=== PATIENT | male | born 1960 | race Caucasian/White ===

== ENCOUNTER → 2021-08-31 12:28 | Outpatient (CLI) | payer OTHER, SELFPAY ==
--- NOTE | ~2021-08-31 | MR_ITS ---
EXAMINATION: MR shoulder LT wo con DATE: 08/31/2021 14:05 INDICATION: Left shoulder pain TECHNIQUE: Magnetic resonance imaging (MRI) of the left shoulder was performed without intravenous co ntrast. Sequences included axial PD-weighted FS FSE, coronal oblique PD-weighted FS FSE, coronal obli que T2-weighted FS FSE, sagittal PD-weighted FS FSE, and sagittal T1-weighted SE. COMPARISON: Left shoulder radiographs dated 05/14/2012 FINDINGS: Coracoacromial arch: The acromion undersurface is curved in morphology (type II). The coracoacromial ligament is normal. M ild to moderate acromial clavicular osteoarthritis with inferiorly directed osteophyte at the lateral margin of the clavicle which abuts the cephalad surface of the underlying supraspinatus with effacem ent of the intervening fat plane. Mild subarticular cystic change at both sides of the joint space. Rotator cuff: Mild to moderate supraspinatus, mild subscapularis and mild anterior infraspinatus tendinopathy witho ut discrete tears. There is mild cystic change underlying the superior and middle facet footplates. T he teres minor tendon is normal. Normal rotator cuff muscle bulk and signal. Biceps tendon, glenoid labrum and glenohumeral cartilage: Mild tendinopathy without discrete tear of the long head biceps tendon at the junction of the interna l extra-articular portions of the tendon. There is a tear at the 10:30-11:30 position of the posterio r superior glenoid labrum. Glenohumeral cartilage is normal. Fluid: Physiologic amount of fluid in the glenohumeral joint and biceps tendon sheath. No loose osteochondra l bodies. Small amount of fluid in the subacromial/subdeltoid bursa consistent with mild bursitis. Bones: Bone alignment is normal. Normal marrow signal with no fracture or pathologic marrow replacing proces s. IMPRESSION: 1. Small SLAP tear at the posterior superior glenoid labrum. 2. Mild to moderate supraspinatus and mild subscapularis and anterior infraspinatus tendinopathy with out discrete tear. 3. Mild tendinopathy without discrete tear at the junction the intra and extra articular portions of the long head biceps tendon. 4. Mild to moderate acromioclavicular osteoarthritis. Reviewed, dictated and finalized at location A. IMPRESSION: 1. Small SLAP tear at the posterior superior glenoid labrum. 2. Mild to moderate supraspinatus and mild subscapularis and anterior infraspin atus tendinopathy without discrete tear. 3. Mild tendinopathy without discrete tear at the junction the intra and extra articular portions of the long head biceps tendon. 4. Mild to moderate acromioclavicular osteoarthritis.
== END ==
PROVIDERS: Visit Provider Pediatrics Sports Medicine
DX: M19.012 Primary osteoarthritis, left shoulder (principal); S43.432A Superior glenoid labrum lesion of left shoulder, initial encounter; X58.XXXA Exposure to other specified factors, initial encounter
CPT/HCPCS: 73221

== ENCOUNTER 2025-02-09 00:54 | Day surgery (SDC) | payer OTHER, SELFPAY ==
[2025-02-03 13:41] VITALS: BMI 35.6
--- OUTSIDE RECORDS SUMMARY | 2025-02-09 00:57 | XMS_ITS | Data Portability ---
Author Organization [employer], [email or web address], [facility] Address [address] [address] Care Team Providers Care Cell Technician Name Role Phone TESSIE DAMON Primary Care Provider [phone] Assessment No assessment recorded. Plan of Treatment Reminders Order Date Submit Date Provider Last Modified By Organization Details Last Modified Time Details Appointments None recorded. Lab None recorded. Referral None recorded. Procedures injection/a spiration, large joint or bursa, with ultrasound guidance (PROC) 2019 020 Not available 0 16:53:36 Surgeries None recorded. Imaging None recorded. Medication Orders Kenalog 40 mg/mL suspension for injection 2019 020 [facility], [address], [address], 1 14:02:49 Patient TargetsNo targets recorded. Patient InstructionsNo instructions recorded. Reason for Referral None Reported. Results Created Date Observation Date Name Description Value Unit Range Abnormal Flag Note LastModifiedBy Organization Detail LastModifiedTime 08/31/20 21 08/31/2021 MRI, shoul nicole, w/o contr ast No observ ation record ed. [facility] [address], [place], [address], 09/03/2021 13:54:34 Result Notes None recorded. Problems Name Problem SNOMED Code Status Onset Date Resolution Date Notes Provider Name and Address Organization Details Recorded Time Degenerative joint disease of shoulder region 14061182 Active Gene moreno [place] [employer], [email or web address] 6 15:22:46 Problem Notes None recorded. Procedures Surgical History Date Name Laterality Status Provider Name and Address Organization Details Recorded Time Back Surgery completed Gene Kessler [employer] [facility], [email or web address] 12/14/2019 14:59:15 Imaging Results Imaging Date Name Status LastModified by Organiz ation Details LastModified Time 08/31/2021 MRI, shoulder, w/o contrast [email or web address] [address], [place], [address], 09/03/2021 13:54:34 Procedure Notes None recorded. Medical Equipment None Reported. Allergies No known drug allergies Medications Name Sig Start Date Stop Date Status Note LastModified by Organization Details LastModified Time celecoxib 200 mg capsule 01/19 completed Not Available Not Available Not Available amoxicillin 500 mg capsule TAKE 2 CAPSULES BY MOUTH NOW THEN 1 THREE TIMES DAILY UNTIL GONE 10/28 completed Not Available Not Available Not Available dicloxacill in 500 mg capsule 05/07 completed Not Available Not Available Not Available metformin 500 mg tablet 10/28 completed Not Available Not Available Not Available Depo-Medrol 40 mg/mL suspension for injection 05/07 completed Not Available Not Available Not Available clindamycin HCl 300 mg capsule TAKE 1 CAPSULE BY MOUTH 4 TIMES DAILY UNTIL GONE 10/28 completed Not Available Not Available Not Available azithromyci n 250 mg tablet 01/13 completed Not Available Not Available Not Available ranitidine 300 mg tablet 10/28 completed Not Available Not Available Not Available hydrocodone 5 mg-acetamin ophen 325 mg tablet 01/19 completed Not Available Not Available Not Available meloxicam 15 mg tablet 01/13 completed Not Available Not Available Not Available famotidine 40 mg tablet active Not Available Not Available Not Available prednisone 20 mg tablet TAKE 2 TABLETS BY MOUTH ONCE DAILY FOR 5 DAYS 01/19 completed Not Available Not Available Not Available metronidazo le 500 mg tablet 10/28 completed Not Available Not Available Not Available acetaminoph en 300 mg-codeine 30 mg tablet TAKE 1 TO 2 TABLETS BY MOUTH EVERY 6 HOURS NEEDED FOR PAIN 01/19 completed Not Available Not Available Not Available allopurinol 100 mg tablet TAKE 1 TABLET BY MOUTH TWICE DAILY active Not Available Not Available No t Available ciprofloxac in 500 mg tablet 05/07 completed Not Available Not Available Not Available fenofibrate micronized 200 mg capsule 01/19 completed Not Available Not Available Not Available tramadol 50 mg tablet TAKE 1 TABLET BY MOUTH EVERY 6 HOURS NEEDED FOR PAIN 01/19 completed Not Available Not Available Not Available triamcinolo ne acetonide 0.1 % topical cream APPLY CREAM EXTERNALL Y TWICE DAILY FOR 2-3 WEEKS TO AFFECTED AREA(S) NEEDED (NOT FOR FACE, ARMPITS, OR GROIN AREA) 01/19 completed Not Available Not Available Not Available Kenalog 40 mg/mL suspension for injection Take by injection route 05/07 completed Not Available Not Available Not Available meloxicam 7.5 mg tablet active Not Available Not Available Not Available oseltamivir 75 mg capsule 01/13 completed Not Available Not Available Not Available metformin 1,000 mg tablet TAKE 1 TABLET BY MOUTH TWICE DAILY WITH MEALS active Not Available Not Available No t Available diclofenac sodium 75 mg tablet,stephon yed release Take 1 tablet twice a day by oral route. 01/13 completed Not Available Not Available Not Available hydroxyzine HCl 25 mg tablet TAKE 1 TABLET BY MOUTH THREE TIMES DAILY NEEDED FOR ITCHING 10/28 completed Not Available Not Available Not Available ammonium lactate 12 % topical cream APPLY CREAM TOPICALLY TO AFFECTED AREA TWICE DAILY 10/28 completed Not Available Not Available Not Available mupirocin 2 % topical ointment APPLY OINTMENT TOPICALLY THREE TIMES DAILY FOR 10 DAYS 01/19 completed Not Available Not Available Not Available levofloxaci n 750 mg tablet 05/07 completed Not Available Not Available Not Available zolpidem 10 mg tablet TAKE 1 TABLET BY MOUTH NIGHTLY AT BEDTIME active Not Available Not Available No t Available methylpredn isolone 4 mg tablets in a dose pack TAKE BY MOUTH DIRECTED ON INSIDE OF PACKAGE 01/19 completed Not Available Not Available Not Available fluticasone propionate 50 mcg/actuati on nasal spray,suspe nsion 05/07 completed Not Available Not Available Not Available naproxen 500 mg tablet 05/07 completed Not Available Not Available Not Available amoxicillin 875 mg-potassiu m clavulanate 125 mg tablet 01/19 completed Not Available Not Available Not Available azithromyci n 500 mg tablet 05/07 completed Not Available Not Available Not Available celecoxib 400 mg capsule 01/13 completed Not Available Not Available Not Available ezetimibe 10 mg tablet active Not Available Not Available Not Available cyclobenzap rine 5 mg tablet TAKE 1 TABLET BY MOUTH THREE TIMES DAILY 01/19 completed Not Available Not Available Not Available Cinnamon 500 mg capsule Take by oral route. 05/07 completed Not Available Not Available Not Available Fish Oil 05/07 completed Not Available Not Available Not Available potassium 05/07 completed Not Available Not Available Not Available fenofibric acid (choline) 135 mg capsule,del ayed release 10/28 completed Not Available Not Available Not Available GaviLyte-G 236 gram-22.74 gram-6.74 gram-5.86 gram oral solution 05/07 completed Not Available Not Available Not Available Xiaflex 0.9 mg solution for injection 05/07 completed Not Available Not Available Not Available One-A-Day Men's 50Plus(gink go) 05/07 completed Not Available Not Available Not Available ChlorTabs 01/13 completed Not Available Not Available Not Available Virtussin AC 10 mg-100 mg/5 mL oral liquid 05/07 completed Not Available Not Available Not Available Vitals Date Recorded Body height Body mass index (BMI) Body weight Heart rate Systolic blood pressure Diastolic blood pressure Provider Name and Address Organization Details Last Updated DateTime 0 185.42 cm 36.9 kg/m2 298506. 86 g 87 /min 133 mm[Hg] 81 mm[Hg] [employer] [facility] 0 14:58:12 Date Recorded Body height Body mass index (BMI) Body weight Heart rate Systolic blood pressure Diastolic blood pressure Provider Name and Address Organization Details Last Updated DateTime 1 185.42 cm 36.9 kg/m2 036676. 86 g 85 /min 134 mm[Hg] 89 mm[Hg] Gene [employer] [facility] 1 14:01:11 Date Recorded Body height Body mass index (BMI) Body weight Heart rate Systolic blood pressure Diastolic blood pressure Provider Name and Address Organization Details Last Updated DateTime 1 185.42 cm 36.9 kg/m2 413008. 86 g 85 /min 134 mm[Hg] 89 mm[Hg] Ina Vance [facility] [employer] [facility] [employer] [facility] 1 11:30:46 Date Recorded Body height Body mass index (BMI) Body weight Heart rate Systolic blood pressure Diastolic blood pressure Provider Name and Address Organization Details Last Updated DateTime 2 185.42 cm 36.9 kg/m2 805640. 86 g 101 /min 154 mm[Hg] 97 mm[Hg] Gene Kessler [facility] [employer] [facility] 2 15:57:28 Date Recorded Body height Body mass index (BMI) Body weight Heart rate Systolic blood pressure Diastolic blood pressure Provider Name and Address Organization Details Last Updated DateTime 4 185.42 cm 36.3 kg/m2 282864. 9 g 92 /min 146 mm[Hg] 86 mm[Hg] Gene Kessler [facility] [employer] [facility] [employer] [facility] 4 15:46:41 Social History Question Answer Notes LastModified by Organizat ion Details LastModified Time Tobacco Smoking Status Never Smoker Gene Kessler [facility] [facility] [employer] [facility] 11/29/2015 13:15:15 What Is Your Level Of Alcohol Consumption? Occasional Information not available 01/13/2018 What Is Your Occupation? [employer] Information not available 01/13/2018 Live Alone Or With Others? With Others Information not available 01/13/2018 Marital Status Informatio n not available 01/13/2018 What Was The Date Of Your Most Recent Tobacco Screening? 01/13/2018 Information n ot available 06/03/2019 How Much Tobacco Do You Smoke? No Information not available 01/13/2018 Sex: Unknown Functional Status None recorded. Mental Status None recorded. Family History Relationship Description Onset Age of this Age Resolved Age Notes LastModified by Organization Details LastModified Time Father Arthritis Not available 01/13/2018 09:51:20 Father Diabetes mellitus Not available 2017 09:51:28 Brother Diabetes mellitus Not available 2017 09:51:34 Brother Diabetes mellitus Not available 2019 14:58:38 Medical History Condition Response HIV or AIDS N Coronary Artery Disease N Other Cancer N Gout N Kidney Stones N Hyperthyroidism N Breast Cancer N Head Trauma/Injury N Hernia N Lung Cancer N Depression N Lung Disease N COPD N Hypothyroidism N Blood Clots N Pneumonia N Pacemaker N Parkinson's N Anxiety Disorder N Multiple Sprains N Arthritis Y Alcohol / Substance Abuse N Kidney Cancer N Cancer N Stroke N Melanoma N Tyrone Danlos Syndrome (EDS) N Bowel Dysfunction N Neck Injury N Leg or Foot Ulcers N High Cholesterol N Skin Cancer N Liver Disease N Rheumatoid Arthritis N Fibromyalgia N Headaches N Gastric Issues N Concussion N Kidney Disease N Heart Problems N Scoliosis N Chronic use of Pain Medication N Prostate Cancer N Migraines N Thyroid Problems N Alzheimers N DVT N Autoimmune Disorder N Anemia N Multiple Sclerosis N Tendon Tear N Ulcers N Heart Attack (ND) N Osteopenia N Diabetes Y Bleeding Disorder N Seizures/Epilepsy N Cardiac Stent N Tuberculosis N A-FIB N BPH N Lymphoma N Urinary Tract Infection N Back Problems N Diverticulitis N Dementia N Vision Problems N Asthma N Lupus N Care Home Medication Use N Peripheral Vascular Disease N Sleep Apnea N Sleep Disorder N GERD/Reflux N Hepatitis N Aneurysm N Thyroid Cancer N Heart Disease N Bronchitis N Pulmonary Embolism N Hypertension N Osteoporosis N Past Encounters Encounter ID Performer Location Encounter Start Date Encounter Closed Date Diagnosis/Indication Diagnosis SNOMED-CT Code Diagnosis ICD10 Code Diagnosis Note [id number] [facility] [id number] [place] [address] 11/29/2015 13:05:33 11/29/2015 13:50:07 Degenerative joint disease of shoulder region 11478947 M19.012 [id number] [facility] [address] [place] [address] 12/03/2016 13:45:24 12/03/2016 16:11:24 Shoulder pain 06968870 M25.511 Arthritis of acromioclavicular joint 619101687 M19.011 [id number] [facility] [id number] [place], [place] [address] 04/15/2017 14:30:57 04/15/2017 15:52:03 Knee pain 82063064 M25.562 [id number] [facility] [id number] [place], [place] [address] 01/13/2018 09:31:07 01/13/2018 14:08:24 Shoulder pain 45289086 M25.511 M25.512 Osteoarthr itis of acromioclavicular joint 428001045 M19.011 M19.012 [id number] [facility] [address] [place] [address] 12/14/2019 14:39:36 12/14/2019 16:16:35 Shoulder pain 38685156 M25.511 M25.512 [id number] [facility] [id number] [place] [address] 05/07/2021 13:42:26 05/07/2021 15:51:19 [id number] [facility] [id number] [place] [address] 07/03/2021 11:07:02 07/03/2021 16:11:48 [id number] [facility] [id number] [place] [address] 10/28/2022 15:26:26 10/29/2022 14:12:01 [id number] [facility] [id number] [place], [place] [address] 01/20/2024 15:29:04 01/21/2024 08:46:55 Health Concerns Section Related Observation LastModified by Organization Detai ls LastModified Time None Recorded Concern Status LastModified by Organization Details LastModified Time None Recorded Advance Directives Directive None Recorded Payers Encounter Date Sequence Insurance Name Policy Number Policy Lao Covered Member ID Lao Member ID Guarantor Name 12/14/2019 1 [facility] [employer] [facility] [facility] [place]note 2] (PP[place]) [id number] Juan Carlos Crump [id number] Juan Carlos Crump 05/07/2021 1 [facility] [id number] Juan Carlos Crump [id number] Juan Carlos Crump 07/03/2021 1 [facility] [id number] Juan Carlos Crump [id number] Juan Carlos Crump 10/28/2022 1 [facility] [id number] Juan Carlos Crump [id number] Juan Carlos Crump 01/20/2024 1 [facility] [id number] Juan Carlos Crump [id number] Juan Carlos Crump 01/20/2024 1 [facility] [id number] Juan Carlos Crump [id number] Juan Carlos Crump Notes Date Note Type Note Provider Name and Address Organization Details Recorded Time 12/14/2019 text/html Pain Score Pain scale from 0-10, 10 being the worst 7 Chief Complaint Pain scale from 0-10, 10 being the worst 7 Imported from [facility] on 12/14/2019 Not Available [facility] 12/17/2019 07:30:16
--- OUTSIDE RECORDS SUMMARY | 2025-02-09 00:57 | XMS_ITS | Encounter Summary ---
Author Organization [facility] Address [address] [place] [address] Care Team Providers Care Front End Manager Name Role Phone Pravin Bradshaw MD Primary Care Provider [phone] Encounter Details Date Type Department Care Team (Latest Contact Info) Description 09/15/2018 Abstract [facility] , Jenna Skaggs MD Social History Tobacco Use Types Packs/Day Years Used Date Smoking Tobacco: Never Assessed Sex and Gender Information Value Date Recorded Sex Assigned at Not on file Legal Sex Male 7:04 PM CDT Gender Identity Not on file Sexual Orientation Not on file documented as of this encounter Plan of Treatment Not on file documented as of this encounter Visit Diagnoses Not on filedocumented in this encounter Additional Health Concerns Infection Onset Date Last Indicated Resolved Time COVID-19 Confirmed 08/18/2020 08/18/2020 0 12:33 AM [employer] COVID-19 Rule Out 08/18/2020 08/18/2020 08/19/2020 4:41 PM CDT documented as of this encounter Care Teams Front End Manager Relationship Specialty [place] [address] [place] [address] PCP - General FAMILY PRACTICE 08/20/18 documented as of this encounter
--- OUTSIDE RECORDS SUMMARY | 2025-02-09 00:58 | XMS_ITS | Encounter Summary ---
Author Organization [facility] Address [address] [place] [address] Care Team Providers Care Technical Analyst Name Role Phone Pravin Bradshaw MD Primary Care Provider [phone] Jena Centeno NP Primary Care Provider [phone] Encounter Details Date Type Department Care Team (Late st Contact Info) Description 04/18/2020 Telephone [facility] [address] [place] [address] Jena Bustamante NP [address] [facility] [address] [place], [place] [id number] Social History Tobacco Use Types Packs/Day Years Used Date Smoking Tobacco: Former Cigarettes 2 19.4 1 981 - 04/06/2000 Smokeless Tobacco: Never Alcohol Use Standard Drinks/Week Comments Yes 10 (1 standard drink = 0.6 oz pu re alcohol) Sex and Gender Information Value Date Recorded Sex Assigned at Not on file Legal Sex Male 8:31 PM [employer] DIRECT[employer] Gender Identity Not on file Sexual Orientation Not on file COVID-19 Exposure Response Date Recorded In the last month, have you been in contact with someone who was confirmed or suspected to have Coronavirus / COVID-19? No / Unsure 04/12/2020 10:43 AM CDT documented as of this encounter Nursing Notes * Jena Bustamante NP - 04/18/2020 10:10 AM CDT Message received from MDs office regarding erythema from pain catheter site. Pics attached to e-mail. Skin on neck is erythematous and with slight edema. Called pt, he is currently applying OTC Hydrocortisone cream and Benadryl PO PRN to help with itching. Pt thinks edema and erythema are slowly resolving with current regimen. Instructed pt to continue medication and to call if symptoms worsen. Requested new pics to be sent to work cell in the next couple of days. Pt verbalized understanding. documented in this encounter Plan of Treatment Not on file documented as of this encounter Visit Diagnoses Not on filedocumented in this encounter Care Teams Technical Analyst Relationship Specialty Start [place] [address] [address] [facility] [address] [place] [address] PCP - General 01/29/19 07/29/24 Jena Centeno NP [address] [facility] [address] [place] [address] PCP - General Family Medicine 07/30/24 documented as of this encounter
--- OUTSIDE RECORDS SUMMARY | 2025-02-09 00:58 | XMS_ITS | Referral Summary ---
Author Organization [facility] [place] Address [address] [place] [address] Care Team Providers Care Screen Printing Cloth Spreader Name Role Phone Jena Centeno NP Primary Care Provider [phone] Encounters Date Type Department Care Team Description 02/01/2025 1:30 PM CDT Office Visit [facility] Primary Care at [address] [phone] Jena Centeno NP Annual physical exam (Primary Dx); Type 2 diabetes mellitus without complication, without long-term current use of insulin (HCC); Hypertension associated with diabetes (HCC); Type 2 diabetes mellitus with hyperlipidemia (HCC); Cervical pain (neck); Strain of cervical portion of trapezius muscle; Vitamin B12 deficiency; Colon cancer screening 01/05/2025 Orders Only [facility] Primary Care at [address] [phone] Jena Centeno NP 01/05/2025 Results Follow-Up [facility] Primary Care at [address] [phone] Jena Centeno NP 01/04/2025 8:02 AM BLOCK MACHINE OPERATOR - 01/04/2025 11:59 PM BLOCK MACHINE OPERATOR Hospital Encounter [address] [address] Nausea; Nocturia; Vitamin B12 deficiency; Gout, unspecified cause, unspecified chronicity, unspecified site; Type 2 diabetes mellitus without complication, without long-term current use of insulin (HCC); Dairy product intolerance Discharge Disposition: Discharge to home or self care 01/04/2025 8:00 AM BLOCK MACHINE OPERATOR Lab [facility] Outpatient Lab at [address] [phone] Mixed hyperlipidemia (Primary Dx) 01/03/2025 2:30 PM BLOCK MACHINE OPERATOR Office Visit [facility] Primary Care at [address] [phone] Jena Centeno NP Type 2 diabetes mellitus without complication, without long-term current use of insulin (HCC) (Primary Dx); Essential hypertriglyceridemia; Nausea; Dairy product intolerance; Gout, unspecified cause, unspecified chronicity, unspecified site; Vitamin B12 deficiency; Nocturia; Other insomnia 12/21/2024 Telephone [facility] Primary Care at [address] [phone] Jena Centeno NP 12/14/2024 Telephone [facility] Primary Care at [address] [phone] Jena Centeno NP 12/14/2024 Telephone [facility] Primary Care at [address] [phone] Jena Centeno NP Appointment Request 12/14/2024 Nurse Triage [facility] Primary Care at [address] [phone] Jena Centeno NP from Last 3 Months Allergies No known active allergies Medications cinnamon bark 500 mg capsule Take 1 capsule (500 mg total) by mouth 2 (two) times a day Active mv-mins/folic /lycopene/gin kgo (ONE-A-DAY MEN 50 PLUS, GINKGO, ORAL) Take 1 tablet by mouth daily Active chlorpheniram ine (CHLOR-TRIMET ON) 4 mg tablet Take 1 tablet (4 mg total) by mouth every 6 (six) hours as needed for allergies Takes BID Active glucosamine HCl 1,500 mg tablet Take by mouth Active omega 4-diw-hjg-fis h oil (Fish OiL) 100-160-1,000 mg capsule Take 1 capsule by mouth 2 (two) times a day 180 capsule 1 08/03/20 24 Active Additional Information Patient not taking.Reported on 02/01/2025 semaglutide (Ozempic) 1 mg/dose (2 mg/1.5 mL) pen injector injection Inject 1 mg under the skin every 7 days 9.5 mL 1 09/21/20 Active omega-3 fatty acids (LOVAZA) 1 gram capsule Take 2 capsules (2 g total) by mouth 2 (two) times a day 360 capsule 1 12/15/19 25 Active allopurinoL (ZYLOPRIM) 100 mg tablet Take 1 tablet (100 mg total) by mouth 2 (two) times a day 180 tablet 1 02/02/20 Active meloxicam (MOBIC) 7.5 mg tabletIndicat ions:Osteoart hritis Take 1 tablet (7.5 mg total) by mouth daily 90 tablet 1 02/02/20 25 Active metFORMIN (Glucophage) 1,000 mg tablet Take 1 tablet (1,000 mg total) by mouth 2 (two) times a day with meals 180 tablet 1 02/02/20 25 Active omeprazole (PriLOSEC) 40 mg capsule Take 1 capsule (40 mg total) by mouth daily 90 capsule 1 02/02/20 25 Active rosuvastatin (CRESTOR) 20 mg tablet Take 1 tablet (20 mg total) by mouth daily 90 tablet 1 02/02/20 25 Active tamsulosin (FLOMAX) 0.4 mg extended release capsule Take 1 capsule (0.4 mg total) by mouth daily 90 capsule 1 02/02/20 25 Active cyclobenzapri ne (FLEXERIL) 5 mg tablet Take 1 tablet (5 mg total) by mouth 3 (three) times a day as needed for muscle spasms 30 tablet 02/02/20 25 025 Active zolpidem CR (AMBIEN CR) 12.5 mg CR tablet TAKE 1 TABLET BY MOUTH NIGHTLY NEEDED FOR SLEEP 30 tablet 02/08/20 25 Active meloxicam (MOBIC) 7.5 mg tabletIndicat ions:Osteoart hritis Take 1 tablet (7.5 mg total) by mouth daily 90 tablet 1 08/03/20 24 025 Discontinued(Re order) metFORMIN (Glucophage) 1,000 mg tablet Take 1 tablet (1,000 mg total) by mouth 2 (two) times a day with meals 180 tablet 1 08/03/20 24 025 Discontinued(Re order) rosuvastatin (CRESTOR) 20 mg tablet TAKE 1 TABLET DAILY 90 tablet 3 11/15/19 25 025 Discontinued(Re order) allopurinoL (ZYLOPRIM) 100 mg tablet Take 1 tablet (100 mg total) by mouth 2 (two) times a day 180 tablet 1 12/08/19 25 025 Discontinued(Re order) omeprazole (PriLOSEC) 40 mg capsule Take 1 capsule (40 mg total) by mouth daily 30 capsule 1 01/03/20 25 025 Discontinued(Re order) tamsulosin (FLOMAX) 0.4 mg extended release capsule Take 1 capsule (0.4 mg total) by mouth daily 90 capsule 1 01/05/20 25 025 Discontinued(Re order) zolpidem CR (AMBIEN CR) 12.5 mg CR tablet Take 1 tablet (12.5 mg total) by mouth nightly as needed for sleep for sleep 30 tablet 01/12/20 25 025 Discontinued cyclobenzapri ne (FLEXERIL) 5 mg tablet Take 1 tablet (5 mg total) by mouth 3 (three) times a day as needed for muscle spasms 30 tablet 02/02/20 25 025 Discontinued methylPREDNIS olone (MEDROL DOSEPACK) 4 mg Dosepack Take as directed on package. 21 tablet 02/02/20 25 025 Discontinued methylPREDNIS olone (MEDROL DOSEPACK) 4 mg Dosepack Take as directed on package. 21 tablet 02/02/20 25 025 Active Problems Problem Noted Date Diagnosed Date FREDERICK (obstructive sleep apnea) 07/30/2024 Assessment & Plan (07/30/2024 9:23 AM CDT): Pt states using cpap for 8 hours/night 7 nights/wk Pt states less daytime somnolence, feels better when using it. Would recommend the continued use of cpap Contracture of palmar fascia 09/25/2023 Gout 09/24/2023 Assessment & Plan (01/03/2025 3:23 PM BLOCK MACHINE OPERATOR): Continues Allopurinol. Dupuytren's contracture 09/12/2023 Trigger middle finger of left hand 09/12/2023 Obesity (BMI 30-39.9) 08/22/2022 Degenerative joint disease of shoulder region Traumatic complete tear of right rotator cuff Overview (03/30/2020): Added automatically from request for surgery [id number] Complete rupture of rotator cuff 03/30/2020 Overview (04/10/2020): Added automatically from request for surgery [id number] Diverticulitis 02/25/2020 Wears glasses 01/13/2018 Acute bronchitis 01/13/2018 URI, acute 01/13/2018 Type 2 diabetes mellitus with hyperlipidemia 10/2015 Assessment & Plan (02/01/2025 2:34 PM CDT): Lipid panel well control, continuing Rosuvastatin Hyperglycemia 06/16/2013 Dyslipidemia 06/16/2013 Essential hypertriglyceridemia 06/16/2013 Assessment & Plan (01/03/2025 3:23 PM BLOCK MACHINE OPERATOR): Taking Rosuvastatin and otc fish oil 1,000 mg BID. Updated labs ordered. Assessment & Plan (07/30/2024 9:23 AM CDT): Pt currently taking Fenofibrate and Zetia. Has never tried statin, discussed statin therapy vs Zetia. Will get updated labs and see about switching to Rosuvastatin. Vitamin B12 deficiency 06/16/2013 Insomnia 06/14/2013 Assessment & Plan (01/03/2025 3:24 PM BLOCK MACHINE OPERATOR): Pt's Ambien 12.5 mg nightly not working for him anymore. Encouraged patient to discuss at upcoming appt with sleep specialist. Assessment & Plan (07/30/2024 9:23 AM CDT): Continues Ambien. Hypertension associated with diabetes 03/23/2013 Assessment & Plan (02/01/2025 2:33 PM CDT): BP normal in office Renal function stable. Pain, joint, shoulder 07/28/2012 Type 2 diabetes mellitus Overview (07/30/2024): meds stopped 1 year ago. managing with diet Assessment & Plan (02/01/2025 2:32 PM CDT): A1c controlled 6.5. Continuing Ozempic, Metformin Assessment & Plan (01/03/2025 3:23 PM BLOCK MACHINE OPERATOR): Updated labs ordered Fasting BG look acceptable from log. Assessment & Plan (07/30/2024 9:19 AM CDT): Most recent A1c controlled at 5.6. Patient currently taking Ozempic and Metformin. Updated labs ordered. Immunizations Immunization Administration Dates Next Due Influenza, Quadrivalent, Spl it, Preservative Free, Intramuscular 07/19/2020 Influenza, Unspecified 11/10/2023(Deferr ed: Patient Refused),11/10/2023(Deferred: Patient Refused),11/10/2022(Deferred: Patient Refused),11/10/2022(Deferred: Patient Refused),11/02/2013 Tdap 12/04/2017,07/28/2012 Social History Tobacco Use Types Packs/Day Years Used Date Smoking Tobacco: Former Cigarettes 2 19.4 1 981 - 04/06/2000 Passive Smoke Exposure: Past Smokeless Tobacco: Never Tobacco Cessation:Counseling Given: Not Answered Alcohol Use Standard Drinks/Week Comments Yes 10 (1 standard drink = 0.6 oz pu re alcohol) AUDIT-C Answer Date Recorded Q1: How often do you have a drink containing alc ohol? 2-4 times a month 10/09/2023 Q2: How many drinks containi ng alcohol do you have on a typical day when you are drinking? 5 or 6 10/09/2023 Q3: How often do you have si x or more drinks on one occasion? Less than monthly 10/09/2023 PHQ-2 Answer Date Recorded PHQ-2 Total Score (If total score is 3 or more points, staff should administer the PHQ-9) 0 02/01/2025 Personal Safety Answer Date Recorded Have you ever been in or are you currently in a harmful physical or emotional relationship or is someone making you feel afraid or unsafe? Denies 10/09/2023 Sex and Gender Information Value Date Recorded Sex Assigned at Not on file Legal Sex Male 8:31 PM BLOCK MACHINE OPERATOR Gender Identity Not on file Sexual Orientation Not on file Last Filed Vital Signs Vital Sign Reading Time Taken Comments Blood Pressure 120/84 02/01/2025 1:27 PM CDT Pulse 96 02/01/2025 1:27 PM CDT Temperature 36.7 C (98 F) 02/01/2025 1:27 PM CDT Respiratory Rate 20 12/18/2023 6:40 PM BLOCK MACHINE OPERATOR Oxygen Saturation 95% 02/01/2025 1:27 PM CDT Inhaled Oxygen Concentration - - Weight 123.8 kg (273 lb) 02/01/2025 1:27 PM CDT Height 185.4 cm (6' 1 ) 02/01/2025 1:27 PM CDT Body Mass Index 36.02 02/01/2025 1:27 PM CDT Plan of Treatment Not on file Medical Devices Implanted Type Area Route Deliverer Device Identifier Shelf Expiration Date Model / Serial / Lot [employer] Ar-2267 Hvac Engineer Large Eyelet Pectoralis Button Fixation Latex Free - [id number] Implanted:Qty: 1 on 04/12/2020 by Daryl Abrams MD at [facility] Right: Shoulder [employer] 12/10/2024 AR-2267 / / [id number] [employer] [id number] Corkscrew Fiberwire Tigerwire 5.5mm 14.7mm 2 [address] Mechanism Vent - [id number] Implanted:Qty: 1 on 04/12/2020 by Daryl Abrams MD at [facility] [employer] 10/09/2023 [id number] / / [id number] Procedures Procedure Name Priority Date/Time Associated Diagnosis Comments EGFR Routine 01/04/2025 8:02 AM BLOCK MACHINE OPERATOR Type 2 diabetes mellitus without complication, without long-term current use of insulin (HCC) DIFFERENTIAL AUTO Routine 01/04/2025 8:0 2 AM BLOCK MACHINE OPERATOR Type 2 diabetes mellitus without complication, without long-term current use of insulin (HCC) GLIADIN ANTIBODY, IGA Routine 01/04/2025 8:02 AM BLOCK MACHINE OPERATOR Nausea TISSUE TRANSGLUTAMINASE, IGA Routine 01/04/2025 8:02 AM BLOCK MACHINE OPERATOR Nausea ALLERGEN MILK (FOOD) IGE Routine 01/04/2025 8:02 AM BLOCK MACHINE OPERATOR Dairy product intolerance ALLERGEN ALPHA LACTALBUMIN Routine 01/04/2025 8:02 AM BLOCK MACHINE OPERATOR Dairy product intolerance ALLERGEN BETA LACTOGLOBIN IGE Routine 01/04/2025 8:02 AM BLOCK MACHINE OPERATOR Dairy product intolerance ALLERGEN EGG WHITE (FOOD) IGE Routine 01/04/2025 8:02 AM BLOCK MACHINE OPERATOR Dairy product intolerance ALLERGEN EGG YOLK (FOOD) IGE Routine 01/04/2025 8:02 AM BLOCK MACHINE OPERATOR Dairy product intolerance ALLERGEN CHEESE CHEDDAR (FOOD) IGE Routine 01/04/2025 8:02 AM BLOCK MACHINE OPERATOR Dairy product intolerance ALLERGEN CASEIN (FOOD) IGE Routine 01/04/2025 8:02 AM BLOCK MACHINE OPERATOR Dairy product intolerance CBC WITH AUTO DIFFERENTIAL Routine 01/04/2025 8:02 AM BLOCK MACHINE OPERATOR Type 2 diabetes mellitus without complication, without long-term current use of insulin (HCC) COMPREHENSIVE METABOLIC PANEL Routine 01/04/2025 8:02 AM BLOCK MACHINE OPERATOR Type 2 diabetes mellitus without complication, without long-term current use of insulin (HCC) LIPID PANEL Routine 01/04/2025 8:02 AM BLOCK MACHINE OPERATOR Type 2 diabetes mellitus without complication, without long-term current use of insulin (HCC) HEMOGLOBIN A1C Routine 01/04/2025 8:02 AM BLOCK MACHINE OPERATOR Type 2 diabetes mellitus without complication, without long-term current use of insulin (HCC) URIC ACID Routine 01/04/2025 8:02 AM BLOCK MACHINE OPERATOR Gout, unspecified cause, unspecified chronicity, unspecified site CELIAC DISEASE ANTIBODY SCREEN Routine 01/04/2025 8:02 AM BLOCK MACHINE OPERATOR Nausea VITAMIN B12 Routine 01/04/2025 8:02 AM BLOCK MACHINE OPERATOR Vitamin B12 deficiency PSA DIAGNOSTIC Routine 01/04/2025 8:02 AM BLOCK MACHINE OPERATOR Nocturia LIPASE Routine 01/04/2025 8:02 AM BLOCK MACHINE OPERATOR Nausea HEPATITIS C ANTIBODY Routine 07/30/2024 8:45 AM CDT Encounter for hepatitis C screening test for low risk patient ALBUMIN CREATININE RATIO, URINE Routine 07/30/2024 8:45 AM CDT Type 2 diabetes mellitus without complication, without long-term current use of insulin (HCC) HM COLONOSCOPY Routine 09/24/2019 9:19 AM BLOCK MACHINE OPERATOR from Last 3 Months or Most Recently Relevant to Health Maintenance Results * eGFR (01/04/2025 8:02 AM BLOCK MACHINE OPERATOR) eGFR >90 >=60 mL/min/1. 73 m2 Comment: Interpretive Data Reference Interval Normal >/= 90 mL/min/1.73m2 Mildly decreased* 60 - 89 mL/min/1.73m2 Mildly to moderately decreased 45 - 59 mL/min/1.73m2 Moderately to severely decreased 30 - 44 mL/min/1.73m2 Severely decreased 15 - 29 mL/min/1.73m2 Kidney Failure < 15 mL/min/1.73m2 *Relative to young adult level Estimated glomerular filtration rate is determined by the 2020 CKD-EPI equation recommended by the National Kidney Foundation (A Unifying Approach to GFR Estimation: Recommendations of the NKF-ASK Task Force on Reassessing the Inclusion of Race in Diagnosing Kidney Disease, JASN 2020). The CKD-EPI equation should not be used for patients with unstable renal function and has not been validated in children and those over 70. Current interpretive data was last reviewed 2021. Blood 01/04/2025 8:02 AM BLOCK MACHINE OPERATOR 01/04/2025 9:51 PM BLOCK MACHINE OPERATOR us Jena Centeno OFFBEARER LAB BLOOD ORDERABLES Final Resul t TREMAYNE [id number] Department [place] [address] * Differential, auto (01/04/2025 8:02 AM BLOCK MACHINE OPERATOR) Neutrophil abs 5.7 1.5 - 6.5 K/cumm Imm gran abs 0.0 0.0 - 0.1 K/cumm [facility] Lymphocyte abs 2.1 0.8 - 3.3 K/cumm [facility] Monocyte abs 0.6 0.2 - 0.8 K/cumm [facility] Eosinophil abs 0.2 0.0 - 0.5 K/cumm [facility] Basophil abs 0.1 0.0 - 0.1 K/cumm [facility] Neutrophil pct 65.6 % [facility] Comment: Interpretive Data Percent cell count reference ranges are not reported, since discordance with absolute values may lead to misinterpretation of CBC data. Current Interpretive Data was last revised on 2018. Imm gran pct 0.3 % [facility] Comment: Interpretive Data Percent cell count reference ranges are not reported, since discordance with absolute values may lead to misinterpretation of CBC data. Current Interpretive Data was last revised on 2018. Lymphocyte pct 24.4 % [facility] Comment: Interpretive Data Percent cell count reference ranges are not reported, since discordance with absolute values may lead to misinterpretation of CBC data. Current Interpretive Data was last revised on 2018. Monocyte pct 6.5 % [facility] Comment: Interpretive Data Percent cell count reference ranges are not reported, since discordance with absolute values may lead to misinterpretation of CBC data. Current Interpretive Data was last revised on 2018. Eosinophil pct 2.5 % [facility] Comment: Interpretive Data Percent cell count reference ranges are not reported, since discordance with absolute values may lead to misinterpretation of CBC data. Current Interpretive Data was last revised on 2018. Basophil pct 0.7 % [facility] Comment: Interpretive Data Percent cell count reference ranges are not reported, since discordance with absolute values may lead to misinterpretation of CBC data. Current Interpretive Data was last revised on 2018. Blood 01/04/2025 8:02 AM BLOCK MACHINE OPERATOR 01/04/2025 9:42 PM BLOCK MACHINE OPERATOR us Jena Centeno OFFBEARER LAB BLOOD ORDERABLES Final Resul t Performing Organization Address [facility] Co de Phone Number TREMAYNE REED [phone] [place] [address] * (ABNORMAL) CBC with auto differential (01/04/2025 8:02 AM BLOCK MACHINE OPERATOR) WBC 8.7 3.8 - 9.9 K/cumm Hgb 16.3 13.0 - 17.5 g/dL [facility] Hct 51.7(H) 38.9 - 50.3 % [facility] Plt 253 150 - 400 K/cumm [facility] MPV 9.9 9.1 - 12.3 fL [facility] RBC 5.73 4.30 - 5.80 M/cumm [facility] MCV 90.2 81.3 - 96.4 fL [facility] MCH 28.4 27.1 - 33.3 pg [facility] MCHC 31.5(L) 32.3 - 35.7 g/dL [facility] RDW CV 12.9 11.1 - 14.9 % [facility] RDW SD 42.3 35.7 - 48.1 fL [facility] NRBC abs 0.00 0.00 - 0.01 K/cumm [facility] Blood 01/04/2025 8:02 AM BLOCK MACHINE OPERATOR 01/04/2025 9:42 PM BLOCK MACHINE OPERATOR us Jena Centeno OFFBEARER LAB BLOOD ORDERABLES Final Resul t Performing Organization Address [facility] Co de Phone Number TREMAYNE REED [phone] Department [employer] [place], [place] [id number] * Gliadin antibody, IgA (01/04/2025 8:02 AM BLOCK MACHINE OPERATOR) Anti-gliadin, IgA <0.5 <=14.9 units/mL Comment: Interpretive data Negative: <15 units/mL Positive: > or equal to 15 units/mL Current interpretive data was last revised on 2017. Testing performed by: [facility], [address] [place] [address]., [id number] Blood 01/04/2025 8:02 AM BLOCK MACHINE OPERATOR 01/05/2025 9:55 AM BLOCK MACHINE OPERATOR us Jena Centeno OFFBEARER LAB BLOOD ORDERABLES Final Resul t Performing Organization Address [facility] de Phone Number TREMAYNE [address] [employer] [place] [address] * Tissue transglutaminase IgA (TGG-IgA Ab) (01/04/2025 8:02 AM BLOCK MACHINE OPERATOR) TTG ab, IgA <0.5 <=14.9 units/mL Comment: Interpretive data Negative: <15 units/mL Positive: > or equal to 15 units/mL Current interpretive data was last revised on 2017. Testing performed by: [facility], [address] [place] [address]., [id number] Blood 01/04/2025 8:02 AM BLOCK MACHINE OPERATOR 01/05/2025 9:57 AM BLOCK MACHINE OPERATOR us Jena Centeno OFFBEARER LAB BLOOD ORDERABLES Final Resul t Performing Organization Address [facility] de Phone Number TREMAYNE [address] [employer] [place] [address] * Allergen Casein (food) IgE (01/04/2025 8:02 AM BLOCK MACHINE OPERATOR) Casein IgE <0.10 0.00 - 0.34 kUnits/L Comment:Testing performed by : [facility], [address] [place] [address]., [id number] Blood 01/04/2025 8:02 AM BLOCK MACHINE OPERATOR 01/05/2025 9:57 AM BLOCK MACHINE OPERATOR us Jena Centeno OFFBEARER LAB BLOOD ORDERABLES Final Resul t Performing Organization Address [facility] de Phone Number TREMAYNE REED [address] [facility] [employer] [place] [address] * Allergen Egg yolk (food) IgE (01/04/2025 8:02 AM BLOCK MACHINE OPERATOR) Egg yolk IgE <0.10 0.00 - 0.34 kUnits/L Comment:Testing performed by : [facility], [address] [place] [address]., [id number] Blood 01/04/2025 8:02 AM BLOCK MACHINE OPERATOR 01/05/2025 9:57 AM BLOCK MACHINE OPERATOR us Jena Centeno OFFBEARER LAB BLOOD ORDERABLES Final Resul t Performing Organization Address [facility] de Phone Number LUCIRICHARD [address] [facility] [employer] [place] [address] * Allergen Egg white (food) IgE (01/04/2025 8:02 AM BLOCK MACHINE OPERATOR) Egg white IgE <0.10 0.00 - 0.34 kUnits/L Comment:Testing performed by : [facility], [address] [place] [address]., [id number] Blood 01/04/2025 8:02 AM BLOCK MACHINE OPERATOR 01/05/2025 9:57 AM BLOCK MACHINE OPERATOR us Jena Centeno OFFBEARER LAB BLOOD ORDERABLES Final Resul t Performing Organization Address [facility] Co de Phone Number LUCIRICHARD [address] [facility] [employer] [place] [address] * (ABNORMAL) Allergen Milk (food) IgE (01/04/2025 8:02 AM BLOCK MACHINE OPERATOR) Milk IgE 0.44(H) 0.00 - 0.34 kUnits/L Comment:Testing performed by : [facility], [address] [place] [address]., [address] Blood 01/04/2025 8:02 AM BLOCK MACHINE OPERATOR 01/05/2025 9:57 AM BLOCK MACHINE OPERATOR us Jena Centeno OFFBEARER LAB BLOOD ORDERABLES Final Resul t Performing Organization Address [facility] de Phone Number TREMAYNE REED [address] [facility] [employer] [place] [address] * Allergen b-Lactoglobin (food) IgE (01/04/2025 8:02 AM BLOCK MACHINE OPERATOR) b-Lactoglobulin IgE <0.10 0.00 - 0.34 kUnits/L Comment:Testing performed by : [facility], [address] [place] [address]., [address] Blood 01/04/2025 8:02 AM BLOCK MACHINE OPERATOR 01/05/2025 9:57 AM BLOCK MACHINE OPERATOR us Jena Centeno OFFBEARER LAB BLOOD ORDERABLES Final Resul t Performing Organization Address [facility] de Phone Number LUCIRICHARD [address] [facility] [employer] [place] [address] * Allergen Chesse cheddar (food) IgE (01/04/2025 8:02 AM BLOCK MACHINE OPERATOR) Cheese cheddar IgE <0.10 0.00 - 0.34 kUnits/L Comment:Testing performed by : [facility], [address] [place] [address]., [id number] Blood 01/04/2025 8:02 AM BLOCK MACHINE OPERATOR 01/05/2025 9:57 AM BLOCK MACHINE OPERATOR us Jena Centeno NP LAB BLOOD ORDERABLES Final Resul t Performing Organization Address [facility] Co de Phone Number LUCIRICHARD [address] [address] [facility] [employer] [place] [address] * Allergen a-Lactalbumin (food) IgE (01/04/2025 8:02 AM BLOCK MACHINE OPERATOR) a-Lactalbumin IgE <0.10 0.00 - 0.34 kUnits/L Comment:Testing performed by : [facility], [address] [facility], [place]., [address] Blood 01/04/2025 8:02 AM BLOCK MACHINE OPERATOR 01/05/2025 9:57 AM BLOCK MACHINE OPERATOR us Jena Centeno OFFBEARER LAB BLOOD ORDERABLES Final Resul t Performing Organization Address [facility] Co de Phone Number LUCIRICHARD [address] [place] [address] * Uric acid (01/04/2025 8:02 AM BLOCK MACHINE OPERATOR) Uric acid 6.1 3.0 - 8.0 mg/dL Blood 01/04/2025 8:02 AM BLOCK MACHINE OPERATOR 01/04/2025 9:42 PM BLOCK MACHINE OPERATOR us Jena Centeno NP LAB BLOOD ORDERABLES Final Resul t Performing Organization Address [facility] [place] [address] [address] [email or web address] [place] [address] * PSA diagnostic (01/04/2025 8:02 AM BLOCK MACHINE OPERATOR) PSA-Total 0.45 <=5.40 ng/mL Comment: Interpretive Data AGE SEX REFERENCE INTERVAL 0 minutes-150 years Female None 0 minutes-49 years Male None 50-59 years Male 0-3.90 60-69 years Male 0-5.40 70-79 years Male 0-6.20 80-150 years Male 0-6.20 The Ary PSA Total assay procedure was used. Results from different manufacturers or methods may not be comparable. Serial testing should be performed using the same method. Current interpretive data last revised 22. Blood 01/04/2025 8:02 AM BLOCK MACHINE OPERATOR 01/04/2025 9:42 PM BLOCK MACHINE OPERATOR us Jena Centeno NP LAB BLOOD ORDERABLES Final Resul t Performing Organization Address [facility] [place] Number [place] [address] [address] [facility] [place] [address] * Lipase (01/04/2025 8:02 AM BLOCK MACHINE OPERATOR) Lipase 35 10 - 99 Units/L Blood 01/04/2025 8:02 AM BLOCK MACHINE OPERATOR 01/04/2025 9:42 PM BLOCK MACHINE OPERATOR us Jena Centeno OFFBEARER LAB BLOOD ORDERABLES Final Resul t Performing Organization Address City/[facility] Co de Phone Number [place] [address] [facility] [place] [address] * (ABNORMAL) Hemoglobin A1c (01/04/2025 8:02 AM BLOCK MACHINE OPERATOR) Hgb A1C 6.5(H) 4.0 - 5.6 % Estimated Average Glucose 140 mg/dL TREMAYNE REED Comment: The ADA recommends reporting an estimated Average Glucose (eAG) with all Hemoglobin A1c results using the equation derived from a study of 507 normal and diabetic adults. Minority populations were underrepresented and children were not included. (Diabetes Care 31:6150-9399, 2008). The eAG is not equivalent to a fasting glucose. Blood 01/04/2025 8:02 AM BLOCK MACHINE OPERATOR 01/04/2025 9:42 PM BLOCK MACHINE OPERATOR us Jena Centeno OFFBEARER LAB BLOOD ORDERABLES Final Resul t Performing Organization Address City/[facility]/ZIP Co de Phone Number [place] [address] [place] [address] * Vitamin B12 (01/04/2025 8:02 AM BLOCK MACHINE OPERATOR) Pathologist [facility] Vitamin B12 274 230 - 1,250 pg/mL Blood 01/04/2025 8:02 AM BLOCK MACHINE OPERATOR 01/04/2025 9:42 PM BLOCK MACHINE OPERATOR us Jena Centeno OFFBEARER LAB BLOOD ORDERABLES Final Resul t [place] [address] [place] [address] * (ABNORMAL) Lipid panel (01/04/2025 8:02 AM BLOCK MACHINE OPERATOR) Cholesterol 112 30 - 199 mg/dL Comment: Interpretive Data Ages < or = 19 years Acceptable: <170 mg/dL Borderline high: 170-199 mg/dL High: >or= 200 mg/dL Ages > or = 20 years Desirable: <200 mg/dL Borderline high: 200-239 mg/dL High: >or= 240 mg/dL Literature References: 1. Expert Panel on Integrated Guidelines for Cardiovascular Health and Risk Reduction in Children and Adolescents. Pediatrics 2011;128:S213 2. NCEP Expert Panel. Circulation 2004;110:227 Current Interpretive Data was last revised on 2018. Triglycerides 221(H) <=149 mg/dL TREMAYNE REED Comment: Interpretive Data Ages < or = 9 years Acceptable: <75 mg/dL Borderline high: 75-99 mg/dL High: >or= 100 mg/dL Ages 10 to 20 years Acceptable: <90 mg/dL Borderline high: 90-129 mg/dL High: >or= 130 mg/dL Ages > or = 20 years Desirable: <150 mg/dL Borderline high: 150-199 mg/dL High: 200-499 mg/dL Very high: >or= 499 mg/dL Literature References: 1. Expert Panel on Integrated Guidelines for Cardiovascular Health and Risk Reduction in Children and Adolescents. Pediatrics 2011;128:S213 2. NCEP Expert Panel. Circulation 2004;110:227 Current Interpretive Data was last revised on 2018. HDL 39(L) >=40 mg/dL TREMAYNE REED Comment: Interpretive Data Ages < or = 19 years Acceptable: >45 mg/dL Borderline low: 40-45 mg/dL Low: <40 mg/dL Ages > or = 20 years Desirable: >or= 60 mg/dL Low: <40 mg/dL Literature References: 1. Expert Panel on Integrated Guidelines for Cardiovascular Health and Risk Reduction in Children and Adolescents. Pediatrics 2011;128:S213 2. NCEP Expert Panel. Circulation 2004;110:227 Current Interpretive Data was last revised on 2018. LDL, calculated 38 <=129 mg/dL TREMAYNE REED Comment: Interpretive Data Ages < or = 19 years Acceptable: <110 mg/dL Borderline high: 110-129 mg/dL High: >or= 130 mg/dL Ages > or = 20 years Optimal: <100 mg/dL Near optimal: 100-129 mg/dL Borderline high: 130-159 mg/dL High: >160 mg/dL Calculated using the Gomez LDL-C estimating equation. This equation was implemented on 2024. Prior to this date LDL-C was estimated using the Friedewald equation. Literature References: 1. Expert Panel on Integrated Guidelines for Cardiovascular Health and Risk Reduction in Children and Adolescents. Pediatrics 2011;128:S213 2. NCEP Expert Panel. Circulation 2004;110:227 3. Gomez Warner et al. IVETH Cardiol. 2020 March 10;5(5):540-548. doi: 10.1001/jamacardio.2020.0013 Current Interpretive Data was last revised on 2024. Non-HDL Cholesterol 73 mg/dL TREMAYNE REED Comment: Interpretive Data Ages < or = 19 years Acceptable: <120 mg/dL Borderline high: 120-144 mg/dL High: >145 mg/dL Ages > or = 20 years When triglycerides are >200 mg/dL, Non-HDL cholesterol is a secondary target of therapy with treatment goals that are 30 mg/dL greater than the LDL cholesterol target. Literature References: 1. Expert Panel on Integrated Guidelines for Cardiovascular Health and Risk Reduction in Children and Adolescents. Pediatrics 2011;128:S213 2. NCEP Expert Panel. Circulation 2004;110:227 Current Interpretive Data was last revised on 2018. Chol/HDL ratio 3 [facility] Blood 01/04/2025 8:02 AM BLOCK MACHINE OPERATOR 01/04/2025 9:42 PM BLOCK MACHINE OPERATOR us Jena Centeno NP LAB BLOOD ORDERABLES Final Resul t [place] RE[place] [address] Department [place] [address] * (ABNORMAL) Comprehensive metabolic panel (01/04/2025 8:02 AM BLOCK MACHINE OPERATOR) Sodium 141 135 - 145 mmol/L Potassium, pl 4.1 3.3 - 4.9 mmol/L [facility] Chloride 105 97 - 110 mmol/L [facility] CO2 22 22 - 32 mmol/L [facility] Anion gap 14 2 - 15 mmol/L [facility] BUN 15 6 - 25 mg/dL [facility] Creatinine 0.62(L) 0.80 - 1.30 mg/dL [facility] Glucose 117 70 - 199 mg/dL [facility] Comment: Interpretive Data Fasting glucose >/= 126 mg/dl is diagnostic for diabetes. Fasting is defined as no caloric intake for at least 8 hours. Fasting glucose between 100 mg/dl to 125 mg/dl is diagnostic of prediabetes. In a patient with classic symptoms of hyperglycemia or hyperglycemic crisis, a random glucose >/= 200 mg/dl is diagnostic for diabetes. In the absence of unequivocal hyperglycemia, results should be confirmed by repeat testing. The classification and Diagnosis of Diabetes Diabetes Care 202; 46: S19-S40. Current interpretive data was last revised 2022. Calcium 9.4 8.5 - 10.3 mg/dL [facility] Bilirubin, total 0.4 0.1 - 1.2 mg/dL [facility] Protein, pl 7.2 6.5 - 8.5 g/dL [facility] Albumin 4.6 3.5 - 5.0 g/dL [facility] Alk phos 54 40 - 130 Units/L [facility] ALT 36 7 - 55 Units/L [facility] AST 26 10 - 50 Units/L [facility] Blood 01/04/2025 8:02 AM BLOCK MACHINE OPERATOR 01/04/2025 9:42 PM BLOCK MACHINE OPERATOR Jena Centeno NP LAB BLOOD ORDERABLES Final Resul t [place] [address] Department [place] [address] * Hepatitis C antibody Blood (07/30/2024 8:45 AM CDT) Hep C Ab Nonreactive Nonreactive Comment: Interpretive Data Nonreactive: Antibodies to HCV not detected. Does NOT exclude the possibility of recent exposure to HCV. Equivocal: Equivocal for HCV antibodies. Supplemental molecular testing will be automatically performed to determine infection status in accordance with current CDC screening recommendations. Reactive: Positive for HCV antibodies. This may represent current or past HCV infection. Supplemental molecular testing will be automatically performed to determine current infection status in accordance with current CDC screening recommendations. Interpretive data was last revised on 2020. Blood 07/30/2024 8:45 AM CDT 07/30/2024 6:27 PM CDT Jena Centeno NP LAB MICROBIOLOGY - GENERAL ORDER ROMELIA Final Result Performing Organization Address [facility] de Phone Number T[place] REED [address] [place] [address] * Albumin Creatinine Ratio, Urine (07/30/2024 8:45 AM CDT) Albumin Ur <12.0 mg/L Comment: Interpretive Data No reference range established. Current interpretive data was last revised 2019. Creatinine Ur 143.2 mg/dL [facility] Comment: Interpretive Data No reference range established. Current interpretive data was last revised 2019. Albumin Creatinine Ratio, Ur <8 1 - 29 mg/g [facility] Urine 07/30/2024 8:45 AM CDT 07/30/2024 6:27 PM CDT Jena Centeno NP LAB URINE ORDERABLES Final Resul t Performing Organization Address [facility] de Phone Number T[place]MA[place] REED [address] [place] [address] * COLONOSCOPY (09/24/2019 9:19 AM BLOCK MACHINE OPERATOR) Historical Provider HEALTH MAINTENANCE Final Result from Last 3 Months or Most Recently Relevant to Health Maintenance Insurance [facility] H[facility]/PPO Address: [facility] [id number] [place] [id number] [facility] * Guarantor: [facility] Account Type Relation to Patient Date of Phone Billing Address Workers Comp Employer [employer] Care Teams Screen Printing Cloth Spreader Relationship Specialty Start Date End Date Jena Centeno NP [address] [place] [address] PCP - General Family Medicine 07/30/24
--- OUTSIDE RECORDS SUMMARY | 2025-02-09 00:58 | XMS_ITS | Clinical Summary ---
Author Organization [facility] Address [address] [place] [address] Care Team Providers Care Information Resource Consultant Name Role Phone Pravin Bradshaw MD Primary Care Provider [phone] Allergies Active Allergy Reactions Criticality Noted Date Comments Seasonal Eyes Water & Itch 09/07/2020 Medications Cinnamon 500 MG Tab Take 1 tablet by mouth 2 (two) times daily. 4 Active multi vitamin/minerals (THERA-M ENHANCED) tablet Take 1 tablet by mouth daily. Active chlorpheniramine (CHLOR-TRIMETON) 4 MG tablet Take 1 tablet (4 mg total) by mouth. Active raNITIdine HCl 300 MG Cap 1 capsule daily. Active Glucosamine-Chondr oit-Vit C-Mn (GLUCOSAMINE 1500 COMPLEX) capsule as directed Orally Active mupirocin (BACTROBAN) 2 % ointment APPLY OINTMENT TOPICALLY THREE TIMES DAILY FOR 10 DAYS Active cyclobenzaprine (FLEXERIL) 5 MG tablet Take 1 tablet (5 mg total) by mouth 3 (three) times daily. 3 Active triamcinolone (KENALOG) 0.1 % cream 3 Active famotidine (PEPCID) 40 MG tabletIndications: Gastroesophageal reflux disease without esophagitis take 1 tablet daily 90 tablet 2 4 Active meloxicam (MOBIC) 7.5 MG tabletIndications: Osteoarthritis of shoulder region Take 1 tablet (7.5 mg total) by mouth daily. 90 tablet 1 4 Active ezetimibe (ZETIA) 10 MG tabletIndications: Dyslipidemia Take 1 tablet (10 mg total) by mouth daily. 90 tablet 3 4 Active Fenofibrate Micronized (LOFIBRA) 200 MG Cap capsuleIndications :Hypertriglyceride gracia TAKE 1 CAPSULE DAILY 90 capsule 1 4 Active fish oil (OMEGA-3 FATTY ACID) 1000 MG Cap capsuleIndications :Mixed hyperlipidemia Take 1 capsule (1,000 mg total) by mouth 2 (two) times daily. 90 capsule 1 4 Active metFORMIN (GLUCOPHAGE) 1000 MG tabletIndications: Type 2 diabetes mellitus without complication, without long-term current use of insulin ([facility]) Take 1 tablet (1,000 mg total) by mouth 2 (two) times daily with meals. 180 tablet 3 4 Active traMADol (ULTRAM) 50 MG tabletIndications: Acute Pain < 7 Day Supply Take 1 tablet (50 mg total) by mouth every 6 (six) hours as needed. Indications: Acute Pain < 7 Day Supply 28 tablet 4 Active semaglutide (OZEMPIC) 1 mg/dose injection (PEN)Indications:D iabetes Mellitus Indications: Diabetes Inject 1mg into the skin once per week 3 mL 5 4 Active zolpidem (AMBIEN) 10 MG tabletIndications: Insomnia, unspecified type Take 1 tablet (10 mg total) by mouth nightly at bedtime. 30 tablet 4 Active allopurinol (ZYLOPRIM) 100 MG tabletIndications: Gout, unspecified cause, unspecified chronicity, unspecified site Take 1 tablet (100 mg total) by mouth 2 (two) times daily. 180 tablet 1 4 Active omega-3 acid (LOVAZA) 1 GM capsuleIndications :Hypertriglyceride gracia Take 2 capsules (2 g total) by mouth 2 (two) times daily. 120 capsule 5 4 Active Active Problems Problem Noted Date Diagnosed Date Obesity (BMI 30-39.9) 08/22/2022 Osteoarthritis of shoulder region 09/15/2020 Complete rupture of rotator cuff 03/30/2020 Overview (06/18/2021): Added automatically from request for surgery [id number] Traumatic complete tear of right rotator cuff Overview (06/18/2021): Added automatically from request for surgery [id number] Diverticulitis 02/25/2020 Acute bronchitis 01/13/2018 URI, acute 01/13/2018 Diabetes mellitus ([facility]) 12/22/2014 Mixed hyperlipidemia 12/22/2014 Dyslipidemia 06/16/2013 Essential hypertriglyceridemia 06/16/2013 Hyperglycemia 06/16/2013 Vitamin B12 deficiency 06/16/2013 Insomnia 06/14/2013 Hypertension 03/23/2013 Pain, joint, shoulder 07/28/2012 Gout Resolved Problems Problem Noted Date Diagnosed Date Resolved Date Wears glasses 01/13/2018 07/21/2020 Encounter for preventive health examination 06/12/2012 07/21/2020 Immunizations Name Administration Dates Next Due Flulaval Quad (Prefilled Syringe) 07/19/2020 Influenza (Generic) 11/02/2013 Influenza Adult (Generic) 07/19/2020 MODERNA COVID-19 (12+) MRNA, LNP-S, PF, 100 MCG/ 0.5 ML DOSE 11/16/2021,02/19/2021,01/22/2021 MODERNA COVID-19 ([employer]W MATEO), MRNA, LNP-S, PF, 50 MCG/ 0.25 ML DOSE 11/16/2021 Tdap (Generic) 12/04/2017,07/28/2012 Family History Medical History Relation Comments Diabetes Father Relation Status Comments Father Social History Tobacco Use Types Packs/Day Years Used Date Smoking Tobacco: Former Cigarettes Q uit: 10/15/1998 Smokeless Tobacco: Never Tobacco Cessation:Counseling Given: No Alcohol Use Standard Drinks/Week Comments Yes 1.7 (1 standard drink = 0.6 oz p ure alcohol) AUDIT-C Answer Date Recorded Frequency of Alcohol Consumption Monthly or less 10/15/2018 Average Number of Drinks Not on file 018 Frequency of Binge Drinking Not on file 04/2018 PHQ-2 Answer Date Recorded Patient Health Questionnaire-2 Score 0 12/22/2023 Sex and Gender Information Value Date Recorded Sex Assigned at Not on file Legal Sex Male 7:04 PM CDT Gender Identity Not on file Sexual Orientation Not on file Occupation Industry Job Start Date Job End Date Not on file Not on file Not on file Not on file Last Filed Vital Signs Vital Sign Reading Time Taken Comments Blood Pressure 104/75 06/07/2024 2:00 PM CDT Pulse 99 06/07/2024 2:00 PM CDT Temperature 36.7 C (98.1 F) 06/07/2024 2:00 PM CDT Respiratory Rate 18 06/07/2024 2:00 PM CDT Oxygen Saturation 97% 06/07/2024 2:00 PM CDT Inhaled Oxygen Concentration - - Weight 128.4 kg (283 lb) 06/07/2024 2:00 PM CDT Height 185.4 cm (6' 1 ) 06/07/2024 2:00 PM CDT Body Mass Index 37.34 06/07/2024 2:00 PM CDT Plan of Treatment Health Maintenance Due Date Last Done Comments Kidney Health Evaluation 1961 Annual Physical 1964 Pneumococcal Vaccine: Pediatrics (0 to 5 Years) and At-Risk Patients (6 to 64 Years) (1 of 2 - PCV) 1967 Hepatitis C 1979 Zoster Vaccines (1 of 2) 2011 Diabetes: Retinopathy Eye Exam 02/12/2024 02/11/2022 COVID-19 Vaccine ( season) 2024 11/16/2021, 11/16/2021, 02/19/2021, Additional history exists Influenza Adult (#1) 2024 07/19/2020, 07/19/2020, 11/02/2013 PHQ-2 (Physician Cleaton) 11/10/2024 12/22/2023 Hemoglobin A1C 12/08/2024 06/07/2024, 0407/2024, 09/15/2023, Additional history exists Lipid Panel 02/26/2025 02/27/2024, 06/10, 12/06/2022, Additional history exists DTaP, Tdap and Td Vaccines (3 - Td or Tdap) 12/04/2027 12/04/2017, 07/28/2012 Colorectal Cancer Screening Colonoscopy (10 Years) 09/24/2029 09/24/2019 RSV Immunization or 60+ Years (1 - 1-dose 75+ series) 2036 Meningococcal B Vaccine Aged Out No l onger eligible based on patient's age to complete this topic Meningococcal Vaccine Aged Out No autumn carol eligible based on patient's age to complete this topic RSV Immunizations Under 20 Months Aged Out No longer eligible based on patient's age to complete this topic Procedures Procedure Name Priority Date/Time Associated Diagnosis Comments HEMOGLOBIN, GLYCOSYLATED Routine 06/07/2024 Type 2 diabetes mellitus without complication, with long-term current use of insulin LIPID PANEL Routine 02/27/2024 8:19 AM CDT Hypertension, unspecified type Dyslipidemia Type 2 diabetes mellitus without complication, with long-term current use of insulin DIABETIC RETINOPATHY EXAM (NEGATIVE)(SCAN ORDER) Routine 02/11/2022 COLONOSCOPY GENERIC (SCAN ORDER) Routine 09/24/2019 from Last 3 Months or Most Recently Relevant to Health Maintenance Results * HEMOGLOBIN, GLYCOSYLATED (06/07/2024) HGB A1C 5.6 % -80249 [facility] 06/07/2024 us Pravin Bradshaw MD LABORATORY Final Resul t Performing Organization Address City/State/[facility] Co de Phone Number -[phone] [facility] [place] [address] [place] [address], * (ABNORMAL) LIPID PANEL (02/27/2024 8:19 AM CDT) CHOLESTEROL 221(H) <200 mg/dL [place] HDL 43 > OR = 40 mg/dL [facility] [place] TRIGLYCERIDES 376(H) <150 mg/dL [facility] [place] Comment: If a non-fasting specimen was collected, consider repeat triglyceride testing on a fasting specimen if clinically indicated. Shyam et al. J. of Clin. Lipidol. 2015;9:129-169. LDL (CALCULATED) 124(H) mg/dL (calc) [facility] [place] Comment: Reference range: <100 Desirable range <100 mg/dL for primary prevention; <70 mg/dL for patients with CHD or diabetic patients with > or = 2 CHD risk factors. LDL-C is now calculated using the Camilla calculation, which is a validated novel method providing better accuracy than the Friedewald equation in the estimation of LDL-C. Jeramie RICHARD et al. IVETH. 2013;310(19): 6583-6671 (http://education.[employer]/faq/KAG363) CHOL/HDL RATIO 5.1(H) <5.0 (calc) [facility] [place] NON HDL CHOLESTEROL 178(H) <130 mg/dL (calc) [facility] [place] Comment: For patients with diabetes plus 1 major ASCVD risk factor, treating to a non-HDL-C goal of <100 mg/dL (LDL-C of <70 mg/dL) is considered a therapeutic option. 02/27/2024 8:19 AM CDT 02/28/2024 1:12 AM CDT Narrative Resulting Agency Comment Performing Organization Information: Site ID: SL [facility] Address: [address] [place] [id number] Director: Lalo Guerrero us Pravin Bradshaw MD LABORATORY Final Resul t Performing Organization Address [facility] Co de Phone Number [facility] - BRIANNE JACOB [address] [phone] * DIABETIC RETINOPATHY EXAM (NEGATIVE)(SCAN) (02/11/2022) us Documents Scanned SCANNING Final Result Performing Organization Address [facility] Co de Phone Number [facility] * COLONOSCOPY (09/24/2019) us Documents Scanned SCANNING Edited Result - Final from Last 3 Months or Most Recently Relevant to Health Maintenance Insurance Member Subscriber Plan / Payer (Ef fective 2022-Present) Name:Juan Carlos Crump Relation to Subscriber:Self Name:Juan Carlos Crump Payer ID:[id number] (NAIC) Type:Not on file Address[address] [address] [facility] Advance Directives * Full Code (Latest Code Status on File) Date Activated Date Inactivated Comments 02/25/2020 10:01 PM 03/02/2020 3:24 PM Care Teams Information Resource Consultant Relationship Specialty [place] [address] [place] [address] PCP - General FAMILY PRACTICE 08/20/18
--- OUTSIDE RECORDS SUMMARY | 2025-02-09 00:58 | XMS_ITS | Clinical Summary ---
Author Organization [facility] Address [address] [place] [address] Care Team Providers Care Head Of Talent Management Name Role Phone Pravin Bull DO Primary Care Provider [phone] Source Comments [facility],non-owned Affiliates and Associated Physician Practices is amultiple site organization consisting of ambulatory clinics and hospital sitesin [place], [place], [place] and [place]. This disclosure is being madepursuant to the Care Everywhere program and may not contain all information available regarding this patient. Last updated 18.[facility] Allergies No known active allergies Medications * Be aware that medications may not be up to date on this document. Alwaysverify current medications with the patient. Medication Sig Dispensed Refills Start Date End Date Status methylPREDNISolone (Medrol Dosepak) 4 MG tabletIndications:Gl uteal pain Take by mouth as directed Follow package insert dosing for six day supply. 21 tablet 03/27/2023 Active Social History Tobacco Use Types Packs/Day Years Used Date Smoking Tobacco: Never Assessed Sex and Gender Information Value Date Recorded Sex Assigned at Not on file Gender Identity Not on file Sexual Orientation Not on file Plan of Treatment Health Maintenance Due Date Last Done Comments COLOGUARD (AGES 45-75) - COL ON CA SCREENING 1961 COLON MONITORING 1961 COLONOSCOPY - COLON CA SCREENING 1961 CT COLONOGRAPHY - COLON CA SCREENING 1961 Colorectal Cancer Screening 1961 FIT - COLON CA SCREENING 1961 FLEX SIG - COLON CA SCREENING 1961 LIPID TESTING 1961 HIV SCREENING 1976 HEPATITIS C SCREENING 09/05/1979 DTAP/TDAP/TD VACCINES (1 - Tdap) 1980 PNEUMOCOCCAL VACCINE 50+ (1 of 1 - PCV) 2011 ZOSTER VACCINE (1 of 2) 2011 COVID-19 VACCINE (4 - 2023-2 5 season) 2024 11/16/2021, 02/19/2021, 01/22/2021 INFLUENZA VACCINE (#1) 2024 0, 11/02/2013 DEPRESSION SCREENING 11/10/2024 Respiratory Syncytial Virus (RSV) Vaccine Pt: or over 60 yrs (1 - 1-dose 75+ series) 2036 HEPATITIS B VACCINE Aged Out No longe r eligible based on patient's age to complete this topic HIB VACCINE Aged Out No longer eligi ble based on patient's age to complete this topic HPV VACCINE Aged Out No longer eligi ble based on patient's age to complete this topic MENINGOCOCCAL (Group B) VACCINE SHARED DECISION-MAKING Aged Out No longer eligible based on patient's age to complete this topic MENINGOCOCCAL GROUPS A/C/Y/W VACCINE Aged Out No longer eligible b ased on patient's age to complete this topic PNEUMOCOCCAL VACCINE Aged Out No long er eligible based on patient's age to complete this topic Care Teams Head Of Talent Management Relationship Specialty Start Date End Date Pravin Bull DO [address] [place] [phone] PCP - General Family Medicine 03/27/23
--- OUTSIDE RECORDS SUMMARY | 2025-02-09 00:58 | XMS_ITS | Patient Health Record ---
Author Organization [facility] Address [address] [place] [address] [place] [address] Care Team Providers Care Plastics Plater Name Role Phone EMILIA RAMACHANDRAN MD Primary Care Provider Leo Nobles Unavailable [phone] SARAI PETERS PT Unavailable Unavailable ALLERGIES No Known Allergies REASON FOR REFERRAL No Information MEDICATIONS Medication SIG (Take, Route, Frequency, Duration) Notes Start Date End Date Status Allopurinol 100 MG 1 tablet Orally Once a day for 30 day(s) Active Ranitidine HCl 300 MG 1 capsule Orally O nce a day for 30 day(s) Active Zetia 10 MG 1 tablet Orally Once a day for 30 day(s) Active Fenofibrate 200 MG 1 capsule with a ada l Orally Once a day for 30 day(s) Active CeleBREX 200 MG 1 capsule with food Orally Once a day for 30 day(s) Active Ambien 10 MG 1 tablet at bedtime as needed Orally Once a day Active metFORMIN HCl 1000 MG 1 tablet with a me al Orally Once a day for 30 day(s) Active Glucosamine 1500 Complex - as directed Orally Active Fish Oil 1000 MG 1 capsule Orally Onc e a day for 30 day(s) Active SOCIAL HISTORY Sex Assigned At : Social History Observation Description Sex Assigned At Unknown PROBLEMS Problem Type ICD Code Onset Dates Problem Status W/U Status Risk SNOMED Code Notes Problem Spondylolisthesis , lumbar region (M43.16) Active confirmed Acquired spondylolisthesis (367777804) Problem Spondylosis without myelopathy or radiculopathy, lumbar region (M47.816) Active confirmed Lumbosacral spondylosis without myelopathy (30586532) Problem Spondylosis without myelopathy or radiculopathy, lumbosacral region (M47.817) Active confirmed Lumbosacral spondylosis without myelopathy (disorder) (37043682) Problem Other intervertebral disc degeneration, lumbar region (M51.36) Active confirmed Degeneration of lumbar intervertebral disc (10751201) Problem Radiculopathy, lumbar region (M54.16) Active confirmed Lumbar radiculopathy (941442341) Problem Sciatica, unspecified side (M54.30) Active confirmed Sciatica (49051539) Problem Sciatica, right side (M54.31) Active confirmed Right side sci atica (821281374600607) Problem Sciatica, left side (M54.32) Active confirmed Left side scia paula (461817929589166) Problem Osseous stenosis of neural canal of lumbar region (M99.33) Active confirmed Spinal stenosis of lumbar region (40778665) Problem Osseous and subluxation stenosis of intervertebral foramina of lumbar region (M99.63) Active confirmed Spinal stenosis of lumbar region (53190494) PLAN OF TREATMENT Pending Test Test Name Order Date MRI : Lumbar Spine without contrast (721 48) 04/10/2023 Insurance Providers Payer Name Payer Address Payer Phone Subscriber Number Group Number Insured Name Patient Relationship to Insured Coverage Start Date Coverage End Date [facility] [address] [address] [place] [address] [id number] CHELE RICHARDSON Self - patient is the insured MEDICAL (GENERAL) HISTORY Medical History History ICD Code Hypertension Insomnia Diverticulitis Surgical History Surgery Date(Month/Year) Lumbar Discectomy 1998 Lumbar Discectomy 2004 Cholecystectomy 2004 Left Knee surgery 2017 Right shoulder tendon repair 04/2020
--- OUTSIDE RECORDS SUMMARY | 2025-02-09 00:58 | XMS_ITS | Encounter Summary ---
Author Organization [facility] Facility Care Team Providers Care Electronic Pagination System Operator Name Role Phone Pravin Bradshaw MD Primary Care Provider [phone] Jena Centeno NP Primary Care Provider [phone] Encounter Details Date Type Department Care Team (Latest Contact Info) Description 01/21/2019 Orders Only [facility]INCON[facility] ProviderCristina MD [address] [place] [id number] Social History Tobacco Use Types Packs/Day Years Used Date Smoking Tobacco: Never Assessed Sex and Gender Information Value Date Recorded Sex Assigned at Not on file Legal Sex Male 8:31 PM [employer] Gender Identity Not on file Sexual Orientation Not on file documented as of this encounter Plan of Treatment Not on file documented as of this encounter Procedures Procedure Name Priority Date/Time Associated Diagnosis Comments PROCEDURE - RESULT 01/21/2019 12 :00 AM CDT documented in this encounter Results * PROCEDURE - RESULT (01/21/2019 12:00 AM CDT) Narrative 01/21/2019 12:00 AM CDT Ordered by an unspecified provider. Historical Provider Final Res ult documented in this encounter Visit Diagnoses Not on filedocumented in this encounter Care Teams Electronic Pagination System Operator Relationship Specialty Start [place] [address] [address] [address] PCP - General 01/29/19 07/29/24 Jena Centeno NP [address] [place] [address] PCP - General Family Medicine 07/30/24 documented as of this encounter
--- OUTSIDE RECORDS SUMMARY | 2025-02-09 00:58 | XMS_ITS | Clinical Summary ---
Author Organization [facility] [place] Address [address] [place] [address] Care Team Providers Care Photo Lab Manager Name Role Phone Jena Centeno NP Primary Care Provider [phone] Allergies No known active allergies Medications cinnamon [...] mg tablet Take by mouth Active omega 4-evx-hkm-fis h oil (Fish OiL) 100-160-1,000 mg capsule Take 1 capsule by mouth 2 (two) times a day 180 capsule 1 08/03/20 24 Active Additional Information Patient not taking.Reported on 02/01/2025 semaglutide (Ozempic) 1 mg/dose (2 mg/1.5 mL) pen injector injection Inject 1 mg under the skin every 7 days 9.5 mL 1 09/21/20 24 Active omega-3 fatty acids (LOVAZA) 1 gram capsule Take 2 capsules (2 g total) by mouth 2 (two) times a day 360 capsule 1 12/15/19 25 Active allopurinoL (ZYLOPRIM) 100 mg tablet Take 1 tablet (100 mg total) by mouth 2 (two) times a day 180 tablet 1 02/02/20 25 Active meloxicam (MOBIC) 7.5 mg tabletIndicat ions:Osteoart hritis Take 1 tablet (7.5 mg total) by mouth daily 90 tablet 1 02/02/20 25 Active metFORMIN (Glucophage) 1,000 mg tablet Take 1 tablet (1,000 mg total) by mouth 2 (two) times a day with meals 180 tablet 1 02/02/20 Active omeprazole (PriLOSEC) 40 mg capsule Take 1 capsule (40 mg total) by mouth daily 90 capsule 1 02/02/20 Active rosuvastatin (CRESTOR) 20 mg tablet Take 1 tablet (20 mg total) by mouth daily 90 tablet 1 02/02/20 Active tamsulosin (FLOMAX) 0.4 mg extended release capsule Take 1 capsule (0.4 mg total) by mouth daily 90 capsule 1 02/02/20 Active cyclobenzapri ne (FLEXERIL) 5 mg tablet [...] by mouth daily 90 capsule 1 01/05/20 025 Discontinued(Re order) zolpidem CR (AMBIEN CR) [...] 09/24/2023 Assessment & Plan (01/03/2025 3:23 PM SALES DEVELOPMENT MANAGER): Continues Allopurinol. Dupuytren's contracture 09/12/2023 Trigger middle finger of left hand 09/12/2023 Obesity (BMI 30-39.9) 08/22/2022 Degenerative joint disease of shoulder region Traumatic complete tear of right rotator cuff Overview (03/30/2020): Added automatically from request for surgery [id number] Complete rupture of rotator cuff 03/30/2020 Overview (04/10/2020): Added automatically from request for surgery [id number] Diverticulitis 02/25/2020 Wears glasses 01/13/2018 Acute bronchitis 01/13/2018 URI, acute 01/13/2018 Type 2 diabetes mellitus with hyperlipidemia 10/2015 Assessment & Plan (02/01/2025 2:34 PM CDT): Lipid panel well control, continuing Rosuvastatin Hyperglycemia 06/16/2013 Dyslipidemia 06/16/2013 Essential hypertriglyceridemia 06/16/2013 Assessment & Plan (01/03/2025 3:23 PM SALES DEVELOPMENT MANAGER): Taking Rosuvastatin and otc fish oil 1,000 mg BID. Updated labs ordered. Assessment & Plan (07/30/2024 9:23 AM CDT): Pt currently taking Fenofibrate and Zetia. Has never tried statin, discussed statin therapy vs Zetia. Will get updated labs and see about switching to Rosuvastatin. Vitamin B12 deficiency 06/16/2013 Insomnia 06/14/2013 Assessment & Plan (01/03/2025 3:24 PM SALES DEVELOPMENT MANAGER): Pt's Ambien 12.5 mg nightly not working [...] Metformin Assessment & Plan (01/03/2025 3:23 PM SALES DEVELOPMENT MANAGER): Updated labs ordered Fasting BG look acceptable from log. Assessment & Plan (07/30/2024 9:19 AM CDT): Most recent A1c controlled at 5.6. Patient currently taking Ozempic and Metformin. Updated labs ordered. Encounters Date Type Department Care Team Description 02/01/2025 1:30 PM CDT Office Visit [facility] at [address] [phone] Jena Centeno NP Annual physical exam (Primary Dx); Type 2 diabetes mellitus without complication, without long-term current use of insulin (HCC); Hypertension associated with diabetes (HCC); Type 2 diabetes mellitus with hyperlipidemia (HCC); Cervical pain (neck); Strain of cervical portion of trapezius muscle; Vitamin B12 deficiency; Colon cancer screening 01/05/2025 Orders Only [facility] at [address] [phone] Jena Centeno NP 01/05/2025 Results Follow-Up [facility] at [address] [phone] Jena Centeno NP 01/04/2025 8:02 AM SALES DEVELOPMENT MANAGER - 01/04/2025 11:59 PM SALES DEVELOPMENT MANAGER Hospital Encounter [address] [address] Nausea; Nocturia; Vitamin B12 deficiency; Gout, unspecified cause, unspecified chronicity, unspecified site; Type 2 diabetes mellitus without complication, without long-term current use of insulin (HCC); Dairy product intolerance Discharge Disposition: Discharge to home or self care 01/04/2025 8:00 AM SALES DEVELOPMENT MANAGER Lab [facility] at [address] [phone] Mixed hyperlipidemia (Primary Dx) 01/03/2025 2:30 PM SALES DEVELOPMENT MANAGER Office Visit [facility] at [address] [phone] Jena Centeno NP Type 2 diabetes mellitus without complication, without long-term current use of insulin (HCC) (Primary Dx); Essential hypertriglyceridemia; Nausea; Dairy product intolerance; Gout, unspecified cause, unspecified chronicity, unspecified site; Vitamin B12 deficiency; Nocturia; Other insomnia 12/21/2024 Telephone [facility] at [address] [phone] Jena Centeno, SALES UTILITY REPRESENTATIVE 12/14/2024 Telephone [facility] at [address] [phone] Jena Centeno, SALES UTILITY REPRESENTATIVE 12/14/2024 Telephone [facility] at [address] [phone] Jena Centeno NP Appointment Request 12/14/2024 Nurse Triage [facility] at [address] [phone] Jena Centeno NP from Last 3 Months Immunizations Immunization Administration Dates Next Due Influenza, Quadrivalent, Spl it, Preservative Free, Intramuscular 07/19/2020 Influenza, Unspecified 11/10/2023(Deferr ed: Patient Refused),11/10/2023(Deferred: Patient Refused),11/10/2022(Deferred: Patient Refused),11/10/2022(Deferred: Patient Refused),11/02/2013 Tdap 12/04/2017,07/28/2012 Surgical History Surgery Date Site/Laterality Comments BACK SURGERY x4; 1998, 2000, 2002, 2022 CHOLECYSTECTOMY 11/10/2009 - 11/09/2010 DUPUYTREN CONTRACTURE RELEASE 2005 & 2016 Right right hand INCISION AND DRAINAGE OF WOUND 08/10/2017 - 2017 Left knee. COLONOSCOPY 3-4 years ago TRIGGER FINGER RELEASE 10/09/2023 LEFT LONG FINGER HAND CONTRACTURE RELEASE 10/09/2023 Left 2ND AND 3RD SHOULDER SURGERY 04/12/2020 Right Labrum repair Medical History Medical History Date Comments Gout well controlled with meds Diverticulitis of colon 03/27/2020 treated with antibiotics-->resolved Sleep apnea Uses C-PAP night ly Insomnia well controlled with meds Type 2 diabetes mellitus (HCC) m eds stopped 1 year ago. managing with diet Hyperlipidemia well controlled with meds Staph infection 08/2017 all cultures--> Just staph. Treated with IV antibiotics-->oral antibiotics-->resolved Delayed emergence from gener al anesthesia slow to wake GERD (gastroesophageal reflux disease) well controlled Obesity History of COVID-19 2019; not ho spitalized Allergic rhinitis Lumbar herniated disc Having omar nomi 10/2023 Wears glasses Dupuytren's disease bilat. Family History Medical History Relation Name Comments Diabetes Brother Hypertension Brother Pancreatic cancer Brother Arthritis Father Diabetes Father Relation Name Status Comments Brother Father Social History Tobacco Use Types Packs/Day [...] on file Legal Sex Male 8:31 PM SALES DEVELOPMENT MANAGER Gender Identity Not on file Sexual Orientation Not on file Obstetrics History Last Filed Vital Signs Vital Sign Reading Time Taken Comments Blood Pressure 120/84 02/01/2025 1:27 PM CDT Pulse 96 02/01/2025 1:27 PM CDT Temperature 36.7 C (98 F) 02/01/2025 1:27 PM CDT Respiratory Rate 20 12/18/2023 6:40 PM SALES DEVELOPMENT MANAGER Oxygen Saturation 95% 02/01/2025 1:27 PM CDT Inhaled Oxygen Concentration - - Weight 123.8 kg (273 lb) 02/01/2025 1:27 PM CDT Height 185.4 cm (6' 1 ) 02/01/2025 1:27 PM CDT Body Mass Index 36.02 02/01/2025 1:27 PM CDT Plan of Treatment Health Maintenance Due Date Last Done Comments Hepatitis B Screening 1979 Pneumococcal vaccine <65 (1 of 2 - PCV) 1980 Zoster Vaccine (1 of 2) 2011 Covid-19 Vaccine (4 - season) 2024 11/16/2021, 02/19/2021, 01/22/2021 Influenza Vaccine (#1) 2024 07/19/2020, 2012 Dilated Eye Exam 03/03/2025 Postponed f rom 1961 (Patient declined, but will receive in the future) Colon Cancer Screening-Colonoscopy 04/03/2025 09/24/2019 Postponed from 09/24/2024 (Patient declined, but will receive in the future) Hemoglobin A1C 07/04/2025 01/04/2025, 07/12, 09/15/2023 Albumin Creatinine Ratio, Urine 07/30/2025 07/30/2024 Foot Exam 07/30/2025 07/30/2024 Lipid Panel 01/04/2026 01/04/2025, 07/12, 02/27/2024, Additional history exists eGFR 01/04/2026 01/04/2025, 07/12, 09/15/2023 Depression Screening 02/01/2026 02/01/2025, 07/30/20 Regular Well Visit/Exam 18-64 02/01/2026 02/01/2025 Prostate Cancer Screening-PSA 01/04/2027 01/04/2025, 07/30/2024 DTaP/Tdap/Td Vaccine (3 - Td or Tdap) 12/04/2027 12/04/2017, 07/28/2012 Colon Cancer Screening-CT Colonography Discontinued 09/24/2019 Colon Cancer Screening-DNA Stool Discontinued 09/24/2019 Colon Cancer Screening-FIT Discontinued 09/24/2019 Colon Cancer Screening-Sigmoidoscopy Discontinued 09/24/2019 Hepatitis C Screening Completed 07/30/2024 Medical Devices Implanted Type Area Hydraulic Jack Adjuster Device Identifier Shelf Expiration Date Model / Serial / Lot [employer] [id number] Stone Hand Large Eyelet Pectoralis Button Fixation Latex Free - [id number] Implanted:Qty: 1 on 04/12/2020 by Daryl Abrams MD at [facility] Right: Shoulder [employer] 12/10/2024 AR-2267 / / [id number] [employer] [id number] Corkscrew Fiberwire Tigerwire 5.5mm 14.7mm 2 [address] Mechanism Vent - [id number] Implanted:Qty: 1 on 04/12/2020 by Daryl Abrams MD at [facility] [employer] 10/09/2023 [id number] / / [id number] Procedures Procedure Name Priority Date/Time Associated Diagnosis Comments EGFR Routine 01/04/2025 8:02 AM SALES DEVELOPMENT MANAGER Type 2 diabetes mellitus without complication, without long-term current use of insulin (HCC) DIFFERENTIAL AUTO Routine 01/04/2025 8:0 2 AM SALES DEVELOPMENT MANAGER Type 2 diabetes mellitus without complication, without long-term current use of insulin (HCC) GLIADIN ANTIBODY, IGA Routine 01/04/2025 8:02 AM SALES DEVELOPMENT MANAGER Nausea TISSUE TRANSGLUTAMINASE, IGA Routine 01/04/2025 8:02 AM SALES DEVELOPMENT MANAGER Nausea ALLERGEN MILK (FOOD) IGE Routine 01/04/2025 8:02 AM SALES DEVELOPMENT MANAGER Dairy product intolerance ALLERGEN ALPHA LACTALBUMIN Routine 01/04/2025 8:02 AM SALES DEVELOPMENT MANAGER Dairy product intolerance ALLERGEN BETA LACTOGLOBIN IGE Routine 01/04/2025 8:02 AM SALES DEVELOPMENT MANAGER Dairy product intolerance ALLERGEN EGG WHITE (FOOD) IGE Routine 01/04/2025 8:02 AM SALES DEVELOPMENT MANAGER Dairy product intolerance ALLERGEN EGG YOLK (FOOD) IGE Routine 01/04/2025 8:02 AM SALES DEVELOPMENT MANAGER Dairy product intolerance ALLERGEN CHEESE CHEDDAR (FOOD) IGE Routine 01/04/2025 8:02 AM SALES DEVELOPMENT MANAGER Dairy product intolerance ALLERGEN CASEIN (FOOD) IGE Routine 01/04/2025 8:02 AM SALES DEVELOPMENT MANAGER Dairy product intolerance CBC WITH AUTO DIFFERENTIAL Routine 01/04/2025 8:02 AM SALES DEVELOPMENT MANAGER Type 2 diabetes mellitus without complication, without long-term current use of insulin (HCC) COMPREHENSIVE METABOLIC PANEL Routine 01/04/2025 8:02 AM SALES DEVELOPMENT MANAGER Type 2 diabetes mellitus without complication, without long-term current use of insulin (HCC) LIPID PANEL Routine 01/04/2025 8:02 AM SALES DEVELOPMENT MANAGER Type 2 diabetes mellitus without complication, without long-term current use of insulin (HCC) HEMOGLOBIN A1C Routine 01/04/2025 8:02 AM SALES DEVELOPMENT MANAGER Type 2 diabetes mellitus without complication, without long-term current use of insulin (HCC) URIC ACID Routine 01/04/2025 8:02 AM SALES DEVELOPMENT MANAGER Gout, unspecified cause, unspecified chronicity, unspecified site CELIAC DISEASE ANTIBODY SCREEN Routine 01/04/2025 8:02 AM SALES DEVELOPMENT MANAGER Nausea VITAMIN B12 Routine 01/04/2025 8:02 AM SALES DEVELOPMENT MANAGER Vitamin B12 deficiency PSA DIAGNOSTIC Routine 01/04/2025 8:02 AM SALES DEVELOPMENT MANAGER Nocturia LIPASE Routine 01/04/2025 8:02 AM SALES DEVELOPMENT MANAGER Nausea HEPATITIS C ANTIBODY Routine 07/30/2024 8:45 AM CDT Encounter for hepatitis C screening test for low risk patient ALBUMIN CREATININE RATIO, URINE Routine 07/30/2024 8:45 AM CDT Type 2 diabetes mellitus without complication, without long-term current use of insulin (HCC) HM COLONOSCOPY Routine 09/24/2019 9:19 AM SALES DEVELOPMENT MANAGER from Last 3 Months or Most Recently Relevant to Health Maintenance Results * eGFR (01/04/2025 8:02 AM SALES DEVELOPMENT MANAGER) eGFR >90 >=60 mL/min/1. 73 m2 Comment: [...] of Race in Diagnosing Kidney Disease, JASN 202). The CKD-EPI equation should not be used for patients with unstable renal function and has not been validated in children and those over 70. Current interpretive data was last reviewed 2021. Blood 01/04/2025 8:02 AM SALES DEVELOPMENT MANAGER 01/04/2025 9:51 PM SALES DEVELOPMENT MANAGER us Jena Centeno NP LAB BLOOD ORDERABLES Final Resul t [facility] [id number] Department [place] [address] * Differential, auto (01/04/2025 8:02 AM SALES DEVELOPMENT MANAGER) Pathologist [facility] Neutrophil abs 5.7 1.5 - 6.5 K/cumm Imm gran abs 0.0 0.0 - 0.1 K/cumm [facility] Lymphocyte abs 2.1 0.8 - 3.3 K/cumm [facility] Monocyte abs 0.6 0.2 - 0.8 K/cumm [facility] Eosinophil abs 0.2 0.0 - 0.5 K/cumm [facility] Basophil abs 0.1 0.0 - 0.1 K/cumm [facility] Neutrophil pct 65.6 % [facility] Comment: Interpretive Data Percent cell count reference ranges are not reported, since discordance with absolute values may lead to misinterpretation of CBC data. Current Interpretive Data was last revised on 2018. Imm gran pct 0.3 % [facility] Comment: Interpretive Data Percent cell count reference ranges are not reported, since discordance with absolute values may lead to misinterpretation of CBC data. Current Interpretive Data was last revised on 2018. Lymphocyte pct 24.4 % [facility] Comment: Interpretive Data Percent cell count reference ranges are not reported, since discordance with absolute values may lead to misinterpretation of CBC data. Current Interpretive Data was last revised on 2018. Monocyte pct 6.5 % [facility] Comment: Interpretive Data Percent cell count reference ranges are not reported, since discordance with absolute values may lead to misinterpretation of CBC data. Current Interpretive Data was last revised on 2018. Eosinophil pct 2.5 % [facility] Comment: Interpretive Data Percent cell count reference ranges are not reported, since discordance with absolute values may lead to misinterpretation of CBC data. Current Interpretive Data was last revised on 2018. Basophil pct 0.7 % [facility] Comment: Interpretive Data Percent cell count reference ranges are not reported, since discordance with absolute values may lead to misinterpretation of CBC data. Current Interpretive Data was last revised on 2018. Blood 01/04/2025 8:02 AM SALES DEVELOPMENT MANAGER 01/04/2025 9:42 PM SALES DEVELOPMENT MANAGER Jena Centeno NP LAB BLOOD ORDERABLES Final Resul t [facility] [id number] Department [place] [address] * (ABNORMAL) CBC with auto differential (01/04/2025 8:02 AM SALES DEVELOPMENT MANAGER) WBC 8.7 3.8 - 9.9 K/cumm Hgb 16.3 13.0 - 17.5 g/dL [facility] Hct 51.7(H) 38.9 - 50.3 % [facility] Plt 253 150 - 400 K/cumm [facility] MPV 9.9 9.1 - 12.3 fL [facility] RBC 5.73 4.30 - 5.80 M/cumm [facility] MCV 90.2 81.3 - 96.4 fL [facility] MCH 28.4 27.1 - 33.3 pg [facility] MCHC 31.5(L) 32.3 - 35.7 g/dL [facility] RDW CV 12.9 11.1 - 14.9 % [facility] RDW SD 42.3 35.7 - 48.1 fL [facility] NRBC abs 0.00 0.00 - 0.01 K/cumm [facility] Blood 01/04/2025 8:02 AM SALES DEVELOPMENT MANAGER 01/04/2025 9:42 PM SALES DEVELOPMENT MANAGER Jena Centeno SALES UTILITY REPRESENTATIVE LAB BLOOD ORDERABLES Final Resul t Performing Organization Address [facility] Co de Phone Number TREMAYNE [address] [facility] [place] [address] * Gliadin antibody, IgA (01/04/2025 8:02 AM SALES DEVELOPMENT MANAGER) Anti-gliadin, IgA <0.5 <=14.9 units/mL Comment: Interpretive data Negative: <15 units/mL Positive: > or equal to 15 units/mL Current interpretive data was last revised on 2017. Testing performed by: [address] [id number] Blood 01/04/2025 8:02 AM SALES DEVELOPMENT MANAGER 01/05/2025 9:55 AM SALES DEVELOPMENT MANAGER us Jena Centeno SALES UTILITY REPRESENTATIVE LAB BLOOD ORDERABLES Final Resul t Performing Organization Address [facility] Co de Phone Number [facility] [address] [address] [facility] [employer] [place], [place] [id number] * Tissue transglutaminase IgA (TGG-IgA Ab) (01/04/2025 8:02 AM SALES DEVELOPMENT MANAGER) TTG ab, IgA <0.5 <=14.9 units/mL Comment: Interpretive data Negative: <15 units/mL Positive: > or equal to 15 units/mL Current interpretive data was last revised on 2017. Testing performed by: [facility], [address] [place]., [address] Blood 01/04/2025 8:02 AM SALES DEVELOPMENT MANAGER 01/05/2025 9:57 AM SALES DEVELOPMENT MANAGER us Jena Centeno NP LAB BLOOD ORDERABLES Final Resul t Performing Organization Address [facility] Co de Phone Number TREMAYNE [address] [place] [address] * Allergen Casein (food) IgE (01/04/2025 8:02 AM SALES DEVELOPMENT MANAGER) Casein IgE <0.10 0.00 - 0.34 kUnits/L Comment:Testing performed by : [facility], [address] [place] [address]., [address] Blood 01/04/2025 8:02 AM SALES DEVELOPMENT MANAGER 01/05/2025 9:57 AM SALES DEVELOPMENT MANAGER Result Colten Centeno SALES UTILITY REPRESENTATIVE LAB BLOOD ORDERABLES Final Resul t Performing Organization Address [facility] de Phone Number TREMAYNE [address] [place] [address] * Allergen Egg yolk (food) IgE (01/04/2025 8:02 AM SALES DEVELOPMENT MANAGER) Egg yolk IgE <0.10 0.00 - 0.34 kUnits/L Comment:Testing performed by : [facility], [address] [place] [address], [place]., [address] Blood 01/04/2025 8:02 AM SALES DEVELOPMENT MANAGER 01/05/2025 9:57 AM SALES DEVELOPMENT MANAGER Result Colten Centeno SALES UTILITY REPRESENTATIVE LAB BLOOD ORDERABLES Final Resul t Performing Organization Address City/[facility] Co de Phone Number TREMAYNE [address] [place] [address] * Allergen Egg white (food) IgE (01/04/2025 8:02 AM SALES DEVELOPMENT MANAGER) Egg white IgE <0.10 0.00 - 0.34 kUnits/L Comment:Testing performed by : [facility], [address] [place] [address]., [address] Blood 01/04/2025 8:02 AM SALES DEVELOPMENT MANAGER 01/05/2025 9:57 AM SALES DEVELOPMENT MANAGER us Jena Centeno SALES UTILITY REPRESENTATIVE LAB BLOOD ORDERABLES Final Resul t Performing Organization Address City/State/[facility] Co de Phone Number TREMAYNE [address] [facility] [employer] [place] [place] [address] * (ABNORMAL) Allergen Milk (food) IgE (01/04/2025 8:02 AM SALES DEVELOPMENT MANAGER) Milk IgE 0.44(H) 0.00 - 0.34 kUnits/L Comment:Testing performed by : [facility], [address] [place] [address]., [address] Blood 01/04/2025 8:02 AM SALES DEVELOPMENT MANAGER 01/05/2025 9:57 AM SALES DEVELOPMENT MANAGER us Jena Centeno NP LAB BLOOD ORDERABLES Final Resul t Performing Organization Address [facility] Co de Phone Number TREMAYNE [address] [place] [address] * Allergen b-Lactoglobin (food) IgE (01/04/2025 8:02 AM SALES DEVELOPMENT MANAGER) b-Lactoglobulin IgE <0.10 0.00 - 0.34 kUnits/L Comment:Testing performed by : [facility], [address] [place] [address]., [address] Blood 01/04/2025 8:02 AM SALES DEVELOPMENT MANAGER 01/05/2025 9:57 AM SALES DEVELOPMENT MANAGER us Jena Centeno SALES UTILITY REPRESENTATIVE LAB BLOOD ORDERABLES Final Resul t TREMAYNE REED [id number] [place] [address] * Allergen Chesse cheddar (food) IgE (01/04/2025 8:02 AM SALES DEVELOPMENT MANAGER) Cheese cheddar IgE <0.10 0.00 - 0.34 kUnits/L Comment:Testing performed by : [facility], [address] [place]., [address] Blood 01/04/2025 8:02 AM SALES DEVELOPMENT MANAGER 01/05/2025 9:57 AM SALES DEVELOPMENT MANAGER us Jena Centeno SALES UTILITY REPRESENTATIVE LAB BLOOD ORDERABLES Final Resul t [facility] [address] [place] [address] * Allergen a-Lactalbumin (food) IgE (01/04/2025 8:02 AM SALES DEVELOPMENT MANAGER) a-Lactalbumin IgE <0.10 0.00 - 0.34 kUnits/L Comment:Testing performed by : [facility], [address] [facility], [place]., [address] Blood 01/04/2025 8:02 AM SALES DEVELOPMENT MANAGER 01/05/2025 9:57 AM SALES DEVELOPMENT MANAGER us Jena Centeno SALES UTILITY REPRESENTATIVE LAB BLOOD ORDERABLES Final Resul t [place] [id number] [place] [address] * Uric acid (01/04/2025 8:02 AM SALES DEVELOPMENT MANAGER) Uric acid 6.1 3.0 - 8.0 mg/dL Blood 01/04/2025 8:02 AM SALES DEVELOPMENT MANAGER 01/04/2025 9:42 PM SALES DEVELOPMENT MANAGER us Jena Centeno SALES UTILITY REPRESENTATIVE LAB BLOOD ORDERABLES Final Resul t [facility] [place] [id number] Department [place] [address] * PSA diagnostic (01/04/2025 8:02 AM SALES DEVELOPMENT MANAGER) PSA-Total 0.45 <=5.40 ng/mL Comment: Interpretive Data [...] last revised 22. Blood 01/04/2025 8:02 AM SALES DEVELOPMENT MANAGER 01/04/2025 9:42 PM SALES DEVELOPMENT MANAGER us Jena Centeno NP LAB BLOOD ORDERABLES Final Resul t Performing Organization Address [facility] de Phone Number TREMAYNE [address] [place] [address] * Lipase (01/04/2025 8:02 AM SALES DEVELOPMENT MANAGER) Pathologist [facility] Lipase 35 10 - 99 Units/L Blood 01/04/2025 8:02 AM SALES DEVELOPMENT MANAGER 01/04/2025 9:42 PM SALES DEVELOPMENT MANAGER us eJna Centeno NP LAB BLOOD ORDERABLES Final Resul t Performing Organization Address [facility] de Phone Number TREMAYNE [address] [address] [facility] [place] [address] * (ABNORMAL) Hemoglobin A1c (01/04/2025 8:02 AM SALES DEVELOPMENT MANAGER) Hgb A1C 6.5(H) 4.0 - 5.6 % Estimated Average Glucose 140 mg/dL T[facility] REED Comment: The ADA recommends reporting an estimated Average Glucose (eAG) with all Hemoglobin A1c results using the equation derived from a study of 507 normal and diabetic adults. Minority populations were underrepresented and children were not included. (Diabetes Care 31:9858-4530, 2008). The eAG is not equivalent to a fasting glucose. Blood 01/04/2025 8:02 AM SALES DEVELOPMENT MANAGER 01/04/2025 9:42 PM SALES DEVELOPMENT MANAGER us Jena Centeno SALES UTILITY REPRESENTATIVE LAB BLOOD ORDERABLES Final Resul t Performing Organization Address [facility] [facility] Co de Phone Number LUCIRICHARD [address] [facility] [place] [address] * Vitamin B12 (01/04/2025 8:02 AM SALES DEVELOPMENT MANAGER) Vitamin B12 274 230 - 1,250 pg/mL Blood 01/04/2025 8:02 AM SALES DEVELOPMENT MANAGER 01/04/2025 9:42 PM SALES DEVELOPMENT MANAGER us Jena Centeno SALES UTILITY REPRESENTATIVE LAB BLOOD ORDERABLES Final Resul t Performing Organization Address [facility] Phone Number TREMAYNE [address] [place] [address] * (ABNORMAL) Lipid panel (01/04/2025 8:02 AM SALES DEVELOPMENT MANAGER) Cholesterol 112 30 - 199 mg/dL Comment: [...] NCEP Expert Panel. Circulation 2004;110:227 3. Gomez Rosado al. IVETH Cardiol. 2020 March 10;5(5):540-548. doi: [...] 3 CERNER CH Blood 01/04/2025 8:02 AM SALES DEVELOPMENT MANAGER 01/04/2025 9:42 PM SALES DEVELOPMENT MANAGER us Jena Centeno SALES UTILITY REPRESENTATIVE LAB BLOOD ORDERABLES Final Resul t CERNER [address] [facility] [place] [address] * (ABNORMAL) Comprehensive metabolic panel (01/04/2025 8:02 AM SALES DEVELOPMENT MANAGER) Sodium 141 135 - 145 mmol/L Potassium, [...] classification and Diagnosis of Diabetes Diabetes Care 2021; 46: S19-S40. Current interpretive data was last revised 2022. Calcium 9.4 8.5 - 10.3 mg/dL [facility] Bilirubin, total 0.4 0.1 - 1.2 mg/dL [facility] Protein, pl 7.2 6.5 - 8.5 g/dL [facility] Albumin 4.6 3.5 - 5.0 g/dL [facility] Alk phos 54 40 - 130 Units/L [facility] ALT 36 7 - 55 Units/L [facility] AST 26 10 - 50 Units/L [facility] Blood 01/04/2025 8:0 2 AM SALES DEVELOPMENT MANAGER 01/04/2025 9:42 PM SALES DEVELOPMENT MANAGER us Jena Centeno NP LAB BLOOD ORDERABLES Final Resul t Performing Organization Address [facility] de Phone Number [facility] [address] [facility] [place] [address] * Hepatitis C antibody Blood (07/30/2024 8:45 [...] 8:45 AM CDT 07/30/2024 6:27 PM CDT us Jena Centeno NP LAB MICROBIOLOGY - GENERAL ORDER ROMELIA Final Result Performing Organization Address [facility] de Phone Number [facility] [address] [facility] [place] [address] * Albumin Creatinine Ratio, Urine (07/30/2024 8:45 AM CDT) Albumin Ur <12.0 mg/L Comment: Interpretive Data No reference range established. Current interpretive data was last revised 2019. Creatinine Ur 143.2 mg/dL [facility] Comment: Interpretive Data No reference range established. Current interpretive data was last revised 2019. 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) Historical Provider MD HEALTH MAINTENANCE Final Result from Last 3 Months or Most Recently Relevant to Health Maintenance Insurance [facility] H[facility]PPO Address: [facility] [id number] [place] [address] [facility] Member Subscriber Plan / Payer (Ef fective 2022-) Name:Juan Carlos Crump Relation to Subscriber:Self Name:Juan Carlos Crump Payer ID:[id number] ([facility]) Type:[facility] HMO/PPO Address: [address] * Guarantor: [facility] [place] [place] [facility] Account Type Relation to Patient Date of Phone Billing Address Workers Comp Employer [employer] Care Teams Photo Lab Manager Relationship Specialty Start Date End Date Jena Centeno NP [address] [place] [address] PCP - General Family Medicine 07/30/24
--- OUTSIDE RECORDS SUMMARY | 2025-02-09 00:58 | XMS_ITS | Encounter Summary ---
Author Organization [facility] Address [address] [place] [address] Care Team Providers Care School Boat Driver Name Role Phone Pravin Bradshaw MD Primary Care Provider [phone] Encounter Details Date Type Department Care Team (Late st Contact Info) Description 03/27/2017 Abstract [facility] Conversion Giovanni Bravo MD [address] [place] [address] Social History Tobacco Use Types Packs/Day Years Used Date Smoking Tobacco: Never Assessed Sex and Gender Information Value Date Recorded Sex Assigned at Not on file Legal Sex Male 7:04 PM CDT Gender Identity Not on file Sexual Orientation Not on file documented as of this encounter Miscellaneous Notes * Letter - Giovanni rBavo MD - 03/27/2017 12:00 AM CDT 03-27-2017 , Juan Carlos Crump [address] [place] [id number] : 1960 Radiology MRI LE, joint Wo W/Wo Described Pain in left kneeM25.562 Normal [] Stat [] 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
--- OUTSIDE RECORDS SUMMARY | 2025-02-09 00:58 | XMS_ITS | Encounter Summary ---
Author Organization [facility] Address [address] [place] [address] Care Team Providers Care Manager Technical Sales Name Role Phone Jena Centeno NP Primary Care Provider [phone] Reason for Visit * Reason Onset Date Comments Medical Question/Miscellaneous 01/05/2025 Encounter Details Date Type Department Care Team (Late st Contact Info) Description 01/05/2025 Results Follow-Up [facility] Primary Care at [address] [id number] Jena Centeno NP [address] [place] [address] [address] [place] [address] Social History Tobacco Use Types Packs/Day Years Used Date Smoking Tobacco: Former Cigarettes 2 19.4 1 981 - 04/06/2000 Passive Smoke Exposure: Past Smokeless Tobacco: Never Alcohol Use Standard Drinks/Week [...] points, staff should administer the PHQ-9) 0 07/30/2024 Personal Safety Answer Date Recorded Have you ever been in or are you currently in a harmful physical or emotional relationship or is someone making you feel afraid or unsafe? 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 Relayed message in chart. She said to go ahead and call in the Flomax. Does message need to be routed? Yes-FYI Only NESS INFORMATION MANAGER documented in this encounter Plan of Treatment Not on file documented as of this encounter Visit Diagnoses Not on filedocumented in this encounter Care Teams Manager Technical Sales Relationship Specialty Start Date End Date Jena Centeno NP [address] [facility] [address] [place] [address] PCP - General Family Medicine 07/30/24 documented as of this encounter
[2025-02-09 07:17] VITALS: BP 131/72; PULSE 90; RESP 18; TEMP 36.2; O2SAT 97
[2025-02-09] MEDS: LACTATED RINGERS 1,000 ML 150 ML IV CONT (07:26)
[2025-02-09 07:33] LABS: Glucose Point of Care 125 mg/dl (65-105)
--- NOTE | 2025-02-09 07:43 | WPDANESEPPF ---
Anes - Initial Pre Proc Eval Procedure: Operation Date: 02/09/25 08:30 Proposed Procedures p Screening Colonoscopy - José Manuel Quinones MD Date/Time: 02/09/25 07:43 Surgeon: José Manuel Quinones MD Pre Op Diagnosis: Encounter for screening for malignant neoplasm of Patient Data Age: 64 Gender: M Height: 1.85 m Weight: 120.6 kg Last Vital Signs Temp 36.2 C L 02/09/25 07:17 Pulse 90 02/09/25 07:17 Resp 18 02/09/25 07:17 BP 131/72 02/09/25 07:17 Pulse Ox 97 02/09/25 07:17 O2 Del Method Room Air 02/09/25 07:17 Allergies Allergy/AdvReac Type Severity Reaction Status Date / Time No Known Allergies Allergy Mild Verified 02/09/25 07:14 Home Medications ?Medication ?Instructions ?Recorded ?Confirmed ?Type allopurinol 100 mg tablet 100 mg PO BID 09/21/19 02/09/25 History celecoxib 200 mg capsule (Celebrex) 200 mg PO DAILY 09/21/19 02/09/25 History cinnamon bark 250 mg PO BID 09/21/19 02/09/25 History ezetimibe 10 mg tablet (Zetia) 10 mg PO DAILY 09/21/19 02/09/25 History omega 4-gsk-agd-fish oil 1,000 mg 1 cap PO BID 09/21/19 02/09/25 History (120 mg-180 mg) capsule (Fish Oil) ranitidine HCl 300 mg capsule 300 mg PO HS 09/21/19 02/09/25 History zolpidem 10 mg sublingual tablet 10 mg sublingual HS 09/21/19 02/09/25 History meloxicam 7.5 mg tablet 7.5 mg PO DAILY 02/03/25 02/09/25 History metformin 1,000 mg tablet 1,000 mg PO DAILY 02/03/25 02/09/25 History omeprazole 40 mg capsule,delayed 40 mg PO DAILY 02/03/25 02/09/25 History release rosuvastatin 20 mg tablet 20 mg PO DAILY 02/03/25 02/09/25 History semaglutide 1 mg/dose (4 mg/3 mL) 1 mg subcut WEEKLY 02/03/25 02/09/25 History subcutaneous pen injector (Ozempic) Laboratory Tests 02/09/25 07:26 POC Capillary Glucose 125 H mg/dl (65-105) Patient hx anesthesia problems: none Family hx anesthesia problems: none Results Review: All pre-operative results and documents have been reviewed as part of the pre-operative evaluation. [facility] Past Medical History Medical History (Updated 02/08/25 @ 13:39 by Jj Tripp, ) Diabetes type 2, controlled Gall bladder stones FREDERICK (obstructive sleep apnea) Obesity GERD (gastroesophageal reflux disease) Hyperlipidemia Surgical History Surgical History H/O hand surgery History of back surgery Social History Social History Smoking packs per day: 2 Smoking cigarettes per day: 40.0 Years smoked: 15 Smoking pack-years: 30.00 Smoking status: Former smoker Tobacco type: cigarettes Second hand tobacco smoke exposure: Yes Smoking end date: 11/10/99 Alcohol intake: current Anes - Eval Final PreProcedure Day of Procedure 02/09/25 07:43 Patient weight: obese Heart: regular rate and rhythm Lungs: clear to auscultation Airway: Mallampati scale class III Neurological: alert and oriented Last oral intake: >/= 8 hours ASA classification: III Emergent: no Anesthetic plan: proceed Anesthesia type and monitoring: general GIVS and standard monitoring Results Review: All pre-operative results and documents have been reviewed as part of the pre-operative evaluation. Informed Consent: The patient's anesthetic plan and its attendant risks and benefits were discussed with the patient/family/POA. Questions were solicited and answers provided to the satisfaction of the patient/family/POA.
--- NOTE | 2025-02-09 08:23 | PM.IMHP ---
H&P: HPI History of Present Illness Date/Time: 02/09/25 08:23 Chief Complaint: Screening colonoscopy Narrative: This is the patient's 2nd colonoscopy. There are no GI symptoms and there is no family history of colorectal cancer. Review of Systems Review of Systems: All systems reviewed & are unremarkable except as noted in HPI and below PMFSH Past Medical History Medical History (Updated 02/09/25 @ 08:24 by José Manuel Quinones MD) Diabetes type 2, controlled Gall bladder stones FREDERICK (obstructive sleep apnea) Obesity GERD (gastroesophageal reflux disease) Hyperlipidemia Surgical History Surgical History H/O hand surgery History of back surgery Social History Social History Smoking packs per day: 2 Smoking cigarettes per day: 40.0 Years smoked: 15 Smoking pack-years: 30.00 Smoking status: Former smoker Tobacco type: cigarettes Second hand tobacco smoke exposure: Yes Smoking end date: 11/10/99 Alcohol intake: current Meds Home Medications and Allergies Home Medications ?Medication ?Instructions ?Recorded ?Confirmed ?Type allopurinol 100 mg tablet 100 mg PO BID 09/21/19 02/09/25 History celecoxib 200 mg capsule (Celebrex) 200 mg PO DAILY 09/21/19 02/09/25 History cinnamon bark 250 mg PO BID 09/21/19 02/09/25 History ezetimibe 10 mg tablet (Zetia) 10 mg PO DAILY 09/21/19 02/09/25 History omega 6-bcx-zyh-fish oil 1,000 mg 1 cap PO BID 09/21/19 02/09/25 History (120 mg-180 mg) capsule (Fish Oil) ranitidine HCl 300 mg capsule 300 mg PO HS 09/21/19 02/09/25 History zolpidem 10 mg sublingual tablet 10 mg sublingual HS 09/21/19 02/09/25 History meloxicam 7.5 mg tablet 7.5 mg PO DAILY 02/03/25 02/09/25 History metformin 1,000 mg tablet 1,000 mg PO DAILY 02/03/25 02/09/25 History omeprazole 40 mg capsule,delayed 40 mg PO DAILY 02/03/25 02/09/25 History release rosuvastatin 20 mg tablet 20 mg PO DAILY 02/03/25 02/09/25 History semaglutide 1 mg/dose (4 mg/3 mL) 1 mg subcut WEEKLY 02/03/25 02/09/25 History subcutaneous pen injector (Ozempic) Allergies Allergy/AdvReac Type Severity Reaction Status Date / Time No Known Allergies Allergy Mild Verified 02/09/25 07:14 Vital Signs Vital Signs - 24 hr 02/09/25 07:17 Temperature 97.1 F L Pulse Rate 90 Respiratory Rate 18 Blood Pressure 131/72 Pulse Oximetry 97 Oxygen Delivery Room Air Exam Const: General: cooperative and healthy appearing Resp: Effort & Inspection: normal respiratory effort and able to speak in complete sentences Auscultation: clear to auscultation bilaterally Cardio: Rate: regular rate Rhythm: regular rhythm GI: Inspection: normal to inspection GI Palp: No No hepatosplenomegaly present Auscultation: normal bowel sounds Rectal Exam: deferred Skin: General skin exam: normal color Psych: Appearance: grossly normal Mental Status: mental status grossly normal Assessment and Plan Assessment and plan (1) Encounter for screening colonoscopy: Code(s): Z12.11 - Encounter for screening for malignant neoplasm of colon Status: Acute Assessment and Plan: The patient is deemed a good candidate for the procedure. Consent signed. Will proceed.
[2025-02-09 08:51] VITALS: BP 115/77; PULSE 94; RESP 15; O2SAT 96
[2025-02-09 09:01] VITALS: BP 114/75; PULSE 87; RESP 18; O2SAT 98
[2025-02-09 09:11] VITALS: BP 115/77; PULSE 94; RESP 15; O2SAT 96
== END 2025-02-09 09:21 | disposition home or self-care (01) ==
PROVIDERS: Referring Provider Nurse Practitioner Family; Visit Provider Internal Medicine Gastroenterology
PROC: 0DJD8ZZ Inspection of Lower Intestinal Tract, Via Natural or Artificial Opening Endoscopic (ICD-10-PCS; CPT 45378; principal; 2025-02-09 08:30)
DX: Z12.11 Encounter for screening for malignant neoplasm of colon (principal); D12.2 Benign neoplasm of ascending colon; K51.40 Inflammatory polyps of colon without complications; K64.8 Other hemorrhoids; K57.30 Diverticulosis of large intestine without perforation or abscess without bleeding; E78.5 Hyperlipidemia, unspecified; E11.9 Type 2 diabetes mellitus without complications; K21.9 Gastro-esophageal reflux disease without esophagitis; G47.33 Obstructive sleep apnea (adult) (pediatric); E66.9 Obesity, unspecified; Z68.35 Body mass index [BMI] 35.0-35.9, adult; Z79.1 Long term (current) use of non-steroidal anti-inflammatories (NSAID); Z79.84 Long term (current) use of oral hypoglycemic drugs; Z79.85 Long-term (current) use of injectable non-insulin antidiabetic drugs; Z98.890 Other specified postprocedural states; Z98.1 Arthrodesis status; Z87.891 Personal history of nicotine dependence; Z87.19 Personal history of other diseases of the digestive system
CPT/HCPCS: 45385; 82948; 88305; J2003; J2704; J7120